=== PATIENT | male | born 1980 | race Caucasian/White ===

== ENCOUNTER 2018-06-25 18:27 | Emergency (ER) | payer MEDICAID, OTHER ==
[2018-06-25 18:40] VITALS: BP 139/108
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
[2018-06-25] MEDS ORDERED: Metoclopramide 10 MG/2 ML SDV IVPUSH ONE (19:14)
[2018-06-25] MEDS ORDERED: HYDROmorphone 1 MG/ML Syringe IVPUSH ONE (19:14)
[2018-06-25] MEDS ORDERED: Sodium Chloride 0.9% 1,000 ML IV SCH (19:15)
[2018-06-25] MEDS ORDERED: Ketorolac 30 MG/ML SDV IVPUSH SCH (19:15)
--- NOTE | 2018-06-26 09:20 | CT ---
CT lumbar spine Technique: Multiple axial sections were obtained from the mid disc level of T11-T12 inferiorly to the bottom of the S3 sacral segment. Reconstructed sagittal and coronal images were reviewed. Comparison: No prior lumbar spine imaging. Findings: Nonobstructing calculus is partially seen within the left kidney. Liver shows fatty infiltration. T11-T12: Disc is incompletely seen. Posterior disc maintains a concave margin. No central canal stenosis or neural foraminal stenosis is seen. T12-L1: Posterior disc maintains a concave margin. No central canal stenosis or neural foraminal stenosis is seen. L1-L2: Posterior disc is preserved. No central canal stenosis or neural foraminal stenosis is seen. L2-L3: Posterior disc maintains a concave margin. No central canal stenosis or neural foraminal stenosis is seen. L3-L4: Posterior disc maintains a concave margin. No central canal stenosis or neural foraminal stenosis is seen. L4-L5: Minimal circumferential disc bulge is seen. Posterior disc maintains a planar margin. No central canal stenosis or neural foraminal stenosis is seen. L5-S1: Mild posterior disc bulge is seen asymmetric to the right side. Disc bulge slightly touches the right S1 nerve root. Neural foramina are patent where the nerve roots exit. Minimal degenerative apophyseal change is seen. No fracture or abnormal subluxation is seen. Impression: 1. Slight degenerative change as noted above most prominent at L5-S1 with minimal disc bulge slightly touching the right S1 nerve root. 2. Nothing acute is seen. 3. Other incidental findings as noted above. Diagnostic code #3 I agree with preliminary report issued by [facility] ([facility] report finalized on 06/25/18, 10:17 PM Central Time)
== END 2018-06-25 21:50 | disposition home or self-care (01) ==
LOC: JD.ED 18:27
DX: M47.26 Other spondylosis with radiculopathy, lumbar region (principal); M51.37 Other intervertebral disc degeneration, lumbosacral region; I10 Essential (primary) hypertension; F41.9 Anxiety disorder, unspecified; F32.9 Major depressive disorder, single episode, unspecified; F17.210 Nicotine dependence, cigarettes, uncomplicated; Z88.1 Allergy status to other antibiotic agents
CPT/HCPCS: 72131; 96361; 96374; 96375; 99284; J1170; J1885; J2765; J7040

== ENCOUNTER 2020-01-12 14:46 | Inpatient (IN) | payer MEDICAID ==
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
[2020-01-12] MEDS ORDERED: Lactated Ringers 1,000 ML IV ONE ×2 (15:25→15:27)
[2020-01-12] MEDS ORDERED: Cyanocobalamin (Vitamin B12) 1,000 MCG/ML SDV IM ONE (15:25)
[2020-01-12] MEDS ORDERED: Ondansetron 4 MG/2 ML SDV IVPUSH ONE (15:25)
[2020-01-12] MEDS: Folic Acid 50 MG/10 ML MDV IV SCH (16:45)
[2020-01-12] MEDS ORDERED: Acetaminophen 325 MG Tab PO ONE (16:51)
[2020-01-12] MEDS ORDERED: NS + KCl 20mEq/L 1,000 ML IV SCH (17:15)
[2020-01-12] MEDS: Sodium Chloride 0.9% 1,000 ML IV SCH (17:49)
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
[2020-01-12] MEDS ORDERED: Ondansetron 4 MG/2 ML SDV IV PRN (18:27)
[2020-01-12] MEDS ORDERED: Ondansetron 4 MG Tab.DIS PO PRN (18:27)
[2020-01-12] MEDS ORDERED: LORazepam 1 MG Tab PO SCH (18:30)
[2020-01-12] MEDS ORDERED: LORazepam 2 MG/ML SDV IV SCH (18:30)
[2020-01-12] MEDS ORDERED: Magnesium Sulfate/Water 4 GM in Premix Bag 1 BAG IV ONE (18:53)
[2020-01-12] MEDS ORDERED: Lactated Ringers 1,000 ML IV SCH (19:00)
[2020-01-12] MEDS: Potassium Chloride 10 MEQ in Premix Bag 1 BAG IV SCH ×2 (20:32→22:04)
[2020-01-12] MEDS: Nicotine 14 MG/24 Hr Patch TRDERM SCH (20:43)
[2020-01-13] MEDS: Sodium Chloride 0.9% 1,000 ML IV SCH ×3 (00:31→15:01)
[2020-01-13] MEDS: Folic Acid 50 MG/10 ML MDV IV SCH (09:54)
[2020-01-13] MEDS: Nicotine 14 MG/24 Hr Patch TRDERM SCH (09:54)
--- NOTE | 2020-01-13 10:28 | US ---
Abdominal ultrasound: Multiple real-time images of the abdomen were obtained. Liver is generous in size and appears echogenic most likely due to fatty infiltration. No definite focal abnormality is appreciated within the liver. Gallbladder is filled with sludge. No shadowing gallstones, gallbladder wall thickening or biliary duct dilatation is seen. Pancreas appears to be a scattered in echogenicity. Possible hypoechoic mass within the body of the pancreas is noted measuring 2.2 cm. No additional abnormalities are appreciated within the visualized pancreas. Kidneys show no hydronephrosis or mass. Right kidney length is 11.4 cm and left kidney length is 12.3 cm. Aorta shows no aneurysm. Inferior vena cava not visualized due to bowel gas. Spleen size is normal. Portal vein shows normal hepatopedal flow. Impression: 1. Abnormal pancreas suggesting the possibility of chronic pancreatitis. Questionable mass within the mid pancreas measuring 2.2 cm. [address] of the pancreas is recommended to further evaluate. 2. Sludge within the gallbladder. 3. Fatty infiltration within the liver with mild hepatomegaly. Diagnostic code #9 This report was dictated in MDT I agree with preliminary report from [facility], finalized on 01/12/20, 8:02 PM Central Daylight Time
--- NOTE | 2020-01-13 11:18 | PCM.PN ---
- General Info Date of Service: 01/13/20 Subjective Update: Feeling ok Slept ok Thirsty No pain - Patient Data Vitals - Most Recent: Last Vital Signs Temp 98.2 F 01/13/20 07:38 Pulse 109 H 01/13/20 07:38 Resp 14 01/13/20 07:38 BP 114/84 01/13/20 07:38 Pulse Ox 98 01/13/20 07:38 Weight - Most Recent: 70.942 kg - Exam Quality Assessment: No: Supplemental Oxygen, Central Line/PICC, Urine Catheter General: Alert, Oriented, Cooperative. No: No Acute Distress HEENT: Pupils Equal, Pupils Reactive, Scleral Icterus Neck: Supple, Trachea Midline, No JVD, No Thyromegaly, +2 Carotid Pulse wo Bruit Lungs: Clear to Auscultation, Normal Respiratory Effort. No: Decreased Breath Sounds, Crackles, Rales, Rhonchi, Rub, Wheezing Cardiovascular: Regular Rate, Regular Rhythm. No: Murmurs, Gallops, Rubs GI/Abdominal Exam: Normal Bowel Sounds, Mass, Hepatomegaly (appear to extend under umbilicus, about 5cm below rib cage). No: Distended, Guarding, Rigid Skin: Warm, Dry, Intact Sepsis Event Note - Evaluation Sepsis Screening Result: Severe Sepsis Risk - Focused Exam Vital Signs: Vital Signs Temp Pulse Resp BP Pulse Ox 01/13/20 07:38 98.2 F 109 H 14 114/84 98 01/13/20 04:44 98.2 F 104 H 20 120/88 98 Date Exam was Performed: 01/13/20 Time Exam was Performed: 17:54 - Problem List & Annotations (1) Alcoholic hepatitis SNOMED Code(s): 282217454 Code(s): K70.10 - ALCOHOLIC HEPATITIS WITHOUT ASCITES Status: Acute Current Visit: Yes (2) Hepatomegaly SNOMED Code(s): 39630579 Code(s): R16.0 - HEPATOMEGALY, NOT ELSEWHERE CLASSIFIED Status: Acute Current Visit: Yes (3) Macrocytic anemia SNOMED Code(s): 33989386 Code(s): D53.9 - NUTRITIONAL ANEMIA, UNSPECIFIED Status: Acute Current Visit: Yes (4) Thrombocytopenia SNOMED Code(s): 037619102 Code(s): D69.6 - THROMBOCYTOPENIA, UNSPECIFIED Status: Acute Current Visit: Yes (5) Hypokalemia SNOMED Code(s): 65804301 Code(s): E87.6 - HYPOKALEMIA Status: Acute Current Visit: Yes (6) Hypoalbuminemia SNOMED Code(s): 471441533 Code(s): E88.09 - [facility] DISORDERS OF PLASMA-PROTEIN METABOLISM, NEC Status: Acute Current Visit: Yes (7) Alcohol abuse SNOMED Code(s): 62794834 Code(s): F10.10 - ALCOHOL ABUSE, UNCOMPLICATED Status: Acute Current Visit: Yes (8) Hyponatremia SNOMED Code(s): 11603133 Code(s): E87.1 - HYPO-OSMOLALITY AND HYPONATREMIA Status: Acute Current Visit: Yes (9) Anxiety SNOMED Code(s): 30309914 Code(s): F41.9 - ANXIETY DISORDER, UNSPECIFIED Status: Acute Current Visit: No (10) Depression SNOMED Code(s): 24195255 Code(s): F32.9 - MAJOR DEPRESSIVE DISORDER, SINGLE EPISODE, UNSPECIFIED Status: Acute Current Visit: No (11) Hypomagnesemia SNOMED Code(s): 684252379 Code(s): E83.42 - HYPOMAGNESEMIA Status: Acute Current Visit: Yes (12) Current every day smoker SNOMED Code(s): 844566208, 177238209 Code(s): F17.200 - NICOTINE DEPENDENCE, UNSPECIFIED, UNCOMPLICATED Status: Acute Current Visit: Yes (13) Pancreatic mass SNOMED Code(s): 239440472 Code(s): K86.89 - OTHER SPECIFIED DISEASES OF PANCREAS Status: Acute Current Visit: Yes (14) Hypophosphatemia SNOMED Code(s): 7972394 Code(s): E83.39 - OTHER DISORDERS OF PHOSPHORUS METABOLISM Status: Acute Current Visit: Yes (15) Marijuana smoker SNOMED Code(s): 991964791 Code(s): F12.90 - CANNABIS USE, UNSPECIFIED, UNCOMPLICATED Status: Acute Current Visit: Yes - Problem List Review Problem List Initiated/Reviewed/Updated: Yes - Plan Plan:: DAY OF ADMISSION - Ethanol level zero on admission + binge alcohol drinking pattern - Admitted with [facility] protocol - No need for steroid use due to Maddrey score of 8 - Negative Tylenol and salicylate level - Positive UDS for THC - Normal coagulation studies, no need for vitamin K - Normal kidney function - Smoked 0.5ppd - Depression - Worsening depression as per patient - Previously treated with paroxetine, he discontinued due to sexual dysfunction - Denies any suicidal or homicidal ideation - Denies any previous psychiatric admissions DAY 1 - Evaluated by psychiatry - Recommended initiating Seroquel, Topamax, Prozac and Ativan as needed - Outpatient rehabilitation - Complete abdominal US with mas in pancreatic head recommending triple phase CT - Electrolytes continue to be abnormal, will replace - Liver function tests still significantly elevate but trending down - Patient remains NPO - Afebrile - 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 Case discussed with [facility] Pancreatologist in [place], [place]--> States that the findings on pancreatic head appear to be same density of the rest of the pancreas and does not appear to be a mas There is some stranding around the pancreas which represents acute edema and stated patient likely is having acute pancreatitis without pain Recommended outpatient endoscopic ultrasound 4 weeks after resolution of current clinical picture Acute alcoholic hepatitis Alcohol abuse, binge pattern Hepatomegaly - NS + 40KCl - Repeat labs in AM - Strict urine output monitoring - Thiamine and folic acid supplementation - Banana bag in AM - CIWA protocol - Hepatitis panel, pending - Continue NPO status - Daily lipase and amylase Hypokalemia Hypophosphatemia Hyponatremia - KCl 40mEq IV - NS + 40mEq at 150 ml/hr - Sodium phosphate 60mMol Current every day smoker - Nicotine patch 14mg Depression - Start thiamine, folic acid - Start Seroquel - Start Topamax - Start Prozac Hypoalbuminemia Weight loss - Dietary consult Hypomagnesemia, resolved PROPHYLAXIS DVT- compression stockings GI- pantoprazole CODE STATUS: FULL CODE DISPOSITION: Patient will be admitted for supportive care and monitorization of liver function. 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
[2020-01-13] MEDS ORDERED: Sodium Chloride 0.9% 10 ML Syringe FLUSH ONE (11:44)
[2020-01-13] MEDS ORDERED: Iopamidol 755 Mg/ML 100 ML Bottle IVPUSH ONE (11:44)
[2020-01-13] MEDS ORDERED: Sodium Chloride 0.9% 100 ML IV SCH (11:45)
[2020-01-13] MEDS ORDERED: LORazepam 1 MG Tab PO ONE (14:29)
[2020-01-13] MEDS: FLUoxetine 20 MG Cap PO SCH (15:00)
[2020-01-13] MEDS: Topiramate 25 MG Tab PO SCH ×2 (15:00→20:10)
[2020-01-13] MEDS ORDERED: Folic Acid 50 MG/10 ML MDV IV ONE (15:25)
[2020-01-13] MEDS ORDERED: Sodium Phosphate 60 MMOLE in Sodium Chloride 0.9% 250 ML IV ONE ×2 (18:38→19:15)
[2020-01-13] MEDS: Sodium Chloride 0.9% with KCl 1,000 ML IV SCH (20:09)
[2020-01-13] MEDS: QUEtiapine 25 MG Tab PO SCH (20:10)
[2020-01-13] MEDS: Potassium Chloride 10 MEQ in Premix Bag 1 BAG IV SCH ×4 (20:10→23:39)
[2020-01-14] MEDS: Sodium Chloride 0.9% with KCl 1,000 ML IV SCH ×4 (03:32→23:14)
--- NOTE | 2020-01-14 07:14 | CT ---
CT abdomen and pelvis Technique: Multiple axial sections were obtained as a 3 phase study through the pancreas. Noncontrast imaging was obtained as well as arterial phase imaging and venous phase imaging through the pancreas. 5 minute delayed images were also obtained through the pancreas. Findings: Liver is enlarged and shows diffuse fatty infiltration. Visualized lung bases show nothing acute. Adrenal glands show no nodule. Kidneys show symmetric contrast enhancement without hydronephrosis. No mass is appreciated within the kidneys. 5 minute delayed images show contrast excretion into both ureters which show no dilatation. There is mild bowel wall thickening within portions of the colon. Slight inflammatory change is noted around the hepatic flexure of the colon. Findings are suspicious for nonspecific colitis. Pancreas shows no abnormal calcifications. Size of the pancreas is within normal limits for age. Focal area of poor enhancement on the arterial phase noted within the head and uncinate process of the pancreas. This finding measures 2.1 cm. This finding is near the ampulla of Vater. No additional abnormality is seen within the pancreas. Scattered small lymph nodes are seen within the retroperitoneum believed to be within normal limits. Bone window settings were reviewed. No acute osseous finding is appreciated. Impression: 1. Findings suspicious for nonspecific colitis as described above. 2. Focal area of poor enhancement within the head and uncinate process of the pancreas. This could represent focal area of pancreatitis as well as a small mass which occurs near the ampulla of Vater. Mass is felt more likely. Recommend referral to a legal arbitrator for opinion whether biopsy by ERCP can be performed. This finding would be difficult to biopsy by percutaneous technique. Also, please correlate if patient has elevated amylase and lipase to indicate pancreatitis. 3. Diffuse fatty infiltration within the liver with hepatomegaly. Diagnostic code #9 This report was dictated in MDT MTDD
[2020-01-14] MEDS: Nicotine 14 MG/24 Hr Patch TRDERM SCH (08:16)
[2020-01-14] MEDS: FLUoxetine 20 MG Cap PO SCH (08:16)
[2020-01-14] MEDS: Thiamine 100 MG Tab PO SCH (08:16)
[2020-01-14] MEDS: Topiramate 25 MG Tab PO SCH ×2 (08:16→21:29)
--- NOTE | 2020-01-14 08:51 | CONS ---
CONSULTING PHYSICIAN: Seymour Villanueva MD DATE OF CONSULTATION: 01/13/2020 Site where the services are provided are [facility] in [place], [place]. Site where the services are provided are offices in [facility]. Length of service for this 60-minute inpatient telemedicine event is 60 minutes. IDENTIFICATION: The patient is a 39-year-old male who is admitted to the inpatient Med/Surg Unit at [facility] in [place], [place]. He is seen for psychiatric consultation per the request of staff attending, Dr. Urbina, in our treatment team. CHIEF COMPLAINT: "I wanna diaz and drink like a fish. I don't know why the hell I do drink sometimes." HISTORY OF PRESENT ILLNESS: The patient is a 39-year-old male who is admitted to the inpatient med/surg unit for complications of hepatitis caused by excessive alcohol use. He states that he has a history of binge drinking, and he states that for the last 6 weeks, he has been drinking "about 10 to 12 shots a day" of hard liquor. He states he has been doing that again for 6 weeks and he states that he had been doing well, "but it all started when I stopped taking my paroxetine" back in May. The patient states that he had been on the Paxil medication for about 6 months. "I had not been drinking", but he stopped the medication because he was having some sexual side effects from the medication. He states also "I'm kind of quick tempered" and reports mood swings. He states the Paxil helped a little bit with that too, but since he stopped the Paxil medication, started to get pretty depressed, pretty irritable, and he has been drinking again pretty heavily. He states he has lack of interest, lack of sleep, where he only gets about 3 hours of sleep per 24-hour period and "if I'm nj, maybe 4 hours." Reports lack of appetite. He states that he has racing thoughts, ruminations, worries, "constantly worrying," and just feels pretty anxious too. He is denying any suicide or homicide. He denies any psychotic, delusional, or paranoid symptoms. He denies any illicit substance use complicating his clinical picture. He states that he wants to stop drinking and he states "I just need to get on a medication again" to help him with his mood. He does report decent energy levels in general. MEDICATIONS: At time of presentation, none. ALLERGIES: Cephalexin. PAST MEDICAL HISTORY: 1. Lower back pain. 2. History of alcoholic hepatitis. REVIEW OF SYSTEMS: Aside from musculoskeletal and hepatic, all other major organ systems are negative at this point in time for acute difficulties or complications. FAMILY PSYCHIATRIC HISTORY: The patient reports sister who has a history of alcoholism. PAST PSYCHIATRIC AND CD HISTORY: The patient denies any previous psychiatric hospitalizations. Reports one chemical dependency treatment in the past. He has not been to AA. He states his longest sobriety has been for 1 year. He denies any previous suicide attempts, self-injurious behaviors, or eating disorder history. PAST PSYCHIATRIC DIAGNOSIS: Includes clinical depression. PAST PSYCHIATRIC MEDICATION HISTORY: Includes Paxil. He was taking 20 mg for 6 months at work, but he quit secondary to sexual side effects, and he also had Ativan in the past which helped him. The patient sees a neurologist out [facility] named Dr. Patrick. SOCIAL HISTORY: The patient was born in [place], [place]. Raised in [place], [place]. He is the 4th of 4 siblings and 3 older sisters. The patient's parents were throughout his childhood and adolescence. Father was a duarte and a rancher. Mother worked on a ranch and stayed home with the family. 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 He has been once, once, is in a current relationship for about 5 years. He has a 2-year-old child from the relationship and 4 stepchildren. His girlfriend works in a truck shop. He lives in [place], [place], with his girlfriend and children. Denies any prior service or any current legal difficulties. He is Hoahaoism in terms of his miguelina formation. However, he is not feeling so depressed. He enjoys playing golf, hunting, fishing, and camping. MENTAL STATUS EXAM: The patient is a 39-year-old white male in no apparent distress. Speech is of regular rate and rhythm. The patient is cognitively oriented. Psychomotor activity is within normal limits. There are no abnormal motor movements or tics observed. Gait and station are not observed. This patient is lying in bed during the course of the inpatient consult. Mood is depressed and anxious. Affect is consistent with stated mood, restricted, but cooperative overall for the purposes of the inpatient consult. There is no behavioral or stated evidence of acute suicidal or homicidal ideation or acute psychotic, delusional, or paranoid symptoms. Thought processes are significant for racing thoughts or ruminations. There are no manic symptoms, loose associations evident. Judgment and insight appear unimpaired at this point in time. Motivation for help appears good. VITAL SIGNS: 114/84, 109, 14, 98.2 degrees. IMPRESSION: [place] I: 1. Alcohol dependence, F10.20. 2. Bipolar affective disease, mixed type, F31.60. 3. Anxiety disorder, not otherwise specified, F41.9. 4. Rule out major depressive disorder. [place] II: None. [place] III: 1. History of alcoholic hepatitis. 2. History of lower back pain. [place] IV: Severe. Mill[place] V: 55. PLAN: 1. Sobriety. 2. AA rep to visit the patient while on unit. 3. Pastoral guidance. 4. Begin trial of Seroquel 25 mg at bedtime to help with clarity of thought, mood stability, and reduction of racing thoughts, ruminations, as well as sleep initiation and maintenance, anxiety reduction, and elimination of any psychotic symptoms. 5. Begin Topamax 25 mg b.i.d. for mood stability, anxiety reduction, and seizure prophylaxis. 6. Begin Prozac 20 mg q.a.m. for symptoms of depression. 7. Folic acid supplementation while on unit. 8. Thiamine supplementation while on unit. 9. Ativan per [facility] protocol. 10.Recommend that the patient follow up with Outpatient Psychiatry when medically stabilized and discharged back to community to assess his overall function and efficacy of his newly initiated psychiatric medication regimen. 11.The patient is apprised of benefits and side effects of his newly initiated psychiatric medication regimen. He acknowledges understanding of these facts. He has no further questions by the end of the interview session. 12.The patient is unable to maintain sobriety on his own after being discharged back to the community. Would recommend some type of structured chemical dependency treatment program, either on outpatient or inpatient basis moving forward. 13.We will continue to follow up with the patient on an as-needed basis while he remains on the inpatient med/surg unit at [facility] in [place], [place]. 14.We will follow up with the patient sooner if any complications in the interim. 15.Crisis plan is in place. SIERRA /[id number]
[2020-01-14] MEDS: Folic Acid 50 MG/10 ML MDV IV SCH (09:44)
--- NOTE | 2020-01-14 19:36 | PCM.PN ---
- General Info Date of Service: 01/14/20 Subjective Update: Feeling OK Slept OK No pain No complaints - Patient Data Vitals - Most Recent: Last Vital Signs Temp 98.1 F 01/14/20 11:35 Pulse 105 H 01/14/20 16:09 Resp 16 01/14/20 16:09 BP 126/92 H 01/14/20 16:09 Pulse Ox 97 01/14/20 16:09 Weight - Most Recent: 72.756 kg - Exam Physical Findings Comments:: Quality Assessment: No: Supplemental Oxygen, Central Line/PICC, Urine Catheter General: Alert, Oriented, Cooperative. No: No Acute Distress HEENT: Pupils Equal, Pupils Reactive, Scleral Icterus Neck: Supple, Trachea Midline, No JVD, No Thyromegaly, +2 Carotid Pulse wo Bruit Lungs: Clear to Auscultation, Normal Respiratory Effort. No: Decreased Breath Sounds, Crackles, Rales, Rhonchi, Rub, Wheezing Cardiovascular: Regular Rate, Regular Rhythm. No: Murmurs, Gallops, Rubs GI/Abdominal Exam: Normal Bowel Sounds, Mass, Hepatomegaly (appear to extend under umbilicus, about 5cm below rib cage). No: Distended, Guarding, Rigid Skin: Warm, Dry, Intact Sepsis Event Note - Evaluation Sepsis Screening Result: No Definite Risk - Focused Exam Vital Signs: Vital Signs Temp Pulse Resp BP Pulse Ox 01/14/20 16:09 105 H 16 126/92 H 97 01/14/20 11:35 98.1 F 103 H 16 129/91 H 98 01/14/20 08:22 97.3 F 97 16 133/91 H 98 Date Exam was Performed: 01/15/20 Time Exam was Performed: 11:57 - Problem List & Annotations (1) Alcoholic hepatitis SNOMED Code(s): 666373528 Code(s): K70.10 - ALCOHOLIC HEPATITIS WITHOUT ASCITES Status: Acute Current Visit: Yes (2) Hepatomegaly SNOMED Code(s): 86891074 Code(s): R16.0 - HEPATOMEGALY, NOT ELSEWHERE CLASSIFIED Status: Acute Current Visit: Yes (3) Macrocytic anemia SNOMED Code(s): 96170582 Code(s): D53.9 - NUTRITIONAL ANEMIA, UNSPECIFIED Status: Acute Current Visit: Yes (4) Thrombocytopenia SNOMED Code(s): 472208817 Code(s): D69.6 - THROMBOCYTOPENIA, UNSPECIFIED Status: Acute Current Visit: Yes (5) Hypokalemia SNOMED Code(s): 83360338 Code(s): E87.6 - HYPOKALEMIA Status: Acute Current Visit: Yes (6) Hypoalbuminemia SNOMED Code(s): 988432403 Code(s): E88.09 - OTH DISORDERS OF PLASMA-PROTEIN METABOLISM, NEC Status: Acute Current Visit: Yes (7) Alcohol abuse SNOMED Code(s): 21367934 Code(s): F10.10 - ALCOHOL ABUSE, UNCOMPLICATED Status: Acute Current Visit: Yes (8) Hyponatremia SNOMED Code(s): 63996110 Code(s): E87.1 - HYPO-OSMOLALITY AND HYPONATREMIA Status: Acute Current Visit: Yes (9) Anxiety SNOMED Code(s): 20727693 Code(s): F41.9 - ANXIETY DISORDER, UNSPECIFIED Status: Acute Current Visit: No (10) Depression SNOMED Code(s): 46801482 Code(s): F32.9 - MAJOR DEPRESSIVE DISORDER, SINGLE EPISODE, UNSPECIFIED Status: Acute Current Visit: No (11) Hypomagnesemia SNOMED Code(s): 274923863 Code(s): E83.42 - HYPOMAGNESEMIA Status: Acute Current Visit: Yes (12) Current every day smoker SNOMED Code(s): 520772075, 280425813 Code(s): F17.200 - NICOTINE DEPENDENCE, UNSPECIFIED, UNCOMPLICATED Status: Acute Current Visit: Yes (13) Pancreatic mass SNOMED Code(s): 407828217 Code(s): K86.89 - OTHER SPECIFIED DISEASES OF PANCREAS Status: Acute Current Visit: Yes (14) Hypophosphatemia SNOMED Code(s): 8968860 Code(s): E83.39 - OTHER DISORDERS OF PHOSPHORUS METABOLISM Status: Acute Current Visit: Yes (15) Marijuana smoker SNOMED Code(s): 852930722 Code(s): F12.90 - CANNABIS USE, UNSPECIFIED, UNCOMPLICATED Status: Acute Current Visit: Yes - Problem List Review Problem List Initiated/Reviewed/Updated: Yes - Plan Plan:: DAY OF ADMISSION - Ethanol level zero on admission + binge alcohol drinking pattern - Admitted with CIWA protocol - No need for steroid use due to Maddrey score of 8 - Negative Tylenol and salicylate level - Positive UDS for THC - Normal coagulation studies, no need for vitamin K - Normal kidney function - Smoked 0.5ppd - Depression - Worsening depression as per patient - Previously treated with paroxetine, he discontinued due to sexual dysfunction - Denies any suicidal or homicidal ideation - Denies any previous psychiatric admissions DAY 1 - Evaluated by psychiatry - Recommended initiating Seroquel, Topamax, Prozac and Ativan as needed - Outpatient rehabilitation - Complete abdominal US with mas in pancreatic head recommending triple phase CT - Electrolytes continue to be abnormal, will replace - Liver function tests still significantly elevate but trending down - Patient remains NPO - Afebrile - 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 Case discussed with Dameon Pancreatologist in [place], [place]--> States that the findings on pancreatic head appear to be same density of the rest of the pancreas and does not appear to be a mas There is some stranding around the pancreas which represents acute edema and stated patient likely is having acute pancreatitis without pain Recommended outpatient endoscopic ultrasound 4 weeks after resolution of current clinical picture DAY 2 - LFTs trending down - Pancreatic enzymes trending down - No pain - Is hungry - Afebrile - CIWA negative Acute alcoholic hepatitis Alcohol abuse, binge pattern Hepatomegaly - NS + 40KCl - Repeat labs in AM - Strict urine output monitoring - Thiamine and folic acid supplementation - [facility] protocol - Hepatitis panel, pending - Continue NPO status - Daily lipase and amylase Hypokalemia Hypophosphatemia Hyponatremia - KCl 40mEq IV - NS + 40mEq at 150 ml/hr - Sodium phosphate 60mMol Current every day smoker - Nicotine patch 14mg Depression - Continue Seroquel, Topamax and Prozac Hypoalbuminemia Weight loss - Dietary consult Hypomagnesemia, resolved PROPHYLAXIS DVT- compression stockings GI- pantoprazole CODE STATUS: FULL CODE DISPOSITION: Patient will remain admitted for supportive care and monitorization of liver function. 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
[2020-01-14] MEDS: QUEtiapine 25 MG Tab PO SCH (21:29)
[2020-01-14] MEDS: LORazepam 1 MG Tab PO SCH (23:37)
[2020-01-15] MEDS: LORazepam 1 MG Tab PO SCH (01:07)
[2020-01-15] MEDS: Sodium Chloride 0.9% with KCl 1,000 ML IV SCH (01:08)
[2020-01-15] MEDS: LORazepam 2 MG/ML SDV IV SCH ×3 (01:55→03:15)
[2020-01-15] MEDS ORDERED: Haloperidol Lactate 5 MG/ML SDV IM ONE (02:15)
[2020-01-15] MEDS ORDERED: Haloperidol Lactate 5 MG/ML SDV ONE (02:18)
--- NOTE | 2020-01-15 02:31 | PCM.SN ---
- Free Text/Narrative Note: The patient is a 39-year-old gentleman who was admitted initially for acute alcohol hepatitis. Physician was called to the patient's room secondary to his severe agitation, disorientation and hallucinations. According to nursing staff the patient's hallucinations and agitation gotten worse over the past several hours. He was initially placed back on CIWA protocol he had been given 3 milligrams of Ativan. The patient will also be continued on CIWA protocol. On examination the patient was disoriented to place and time and he was able to repeat his name. Also, the patient was clearly hallucinating. The patient was also continuing to try and get out of bed. It was felt that the patient is at higher risk for seizure activity and unintentional self-harm requiring one-on- one sitter and he was moved to intensive care unit. The patient also had ordered to have 5 mg of Haldol IM to help with his agitation. This felt that the patient's acute mental status changes physician relations representative of alcoholic encephalopathy. He also be continued on IV fluids as well as thiamine and folate. TeleHealth - TeleHealth Patient Service Facility: [facility]: [facility] Informed Consent: Telemedicine Audio/Visual Informed Consent: The risks, benefits, and alternatives to the telehealth visit were explained to the patient and the patient consented to this modality of care. The telehealth visit was carried out via a secure, web-based conferencing system. This telemedicine service was a real-time, two-way interactive video and communication between the patient and the provider. All the parties involved were identified and approved by the patient prior to the visit. Any physical exam was assisted by the patient. Unless noted otherwise, the provider was located at their usual clinic location , and the patient was at their place of residence. Patient identity was confirmed by having the patient state their name and date of . All communications with the patient (verbal, audiovisual, and written) were documented in the patients medical record per documentation standards.
[2020-01-15] MEDS ORDERED: Magnesium Sulfate/Water 2 GM in Premix Bag 1 BAG IV ONE (08:30)
[2020-01-15] MEDS ORDERED: Sodium Chloride 0.9% 1,000 ML IV SCH (08:30)
[2020-01-15] MEDS: Folic Acid 1 MG Tab PO SCH (08:45)
[2020-01-15] MEDS: Thiamine 100 MG Tab PO SCH (08:45)
[2020-01-15] MEDS: Nicotine 14 MG/24 Hr Patch TRDERM SCH (08:45)
[2020-01-15] MEDS: FLUoxetine 20 MG Cap PO SCH (08:45)
--- NOTE | 2020-01-15 10:12 | PCM.PN ---
- General Info Date of Service: 01/15/20 Subjective Update: 39-year-old male admitted for alcoholic hepatitis became severely agitated, disoriented, and had hallucinations early this morning/late last night. Patient was given Ativan and Haldol. Patient was transferred to the ICU for closer observation and one-on-one sitter. Functional Status: Reports: Pain Controlled - Review of Systems General: Reports: Other (Patient is confused) - Patient Data Vitals - Most Recent: Last Vital Signs Temp 97.0 F 01/15/20 08:00 Pulse 98 01/15/20 08:00 Resp 20 01/15/20 08:00 BP 100/70 01/15/20 08:00 Pulse Ox 98 01/15/20 08:00 Weight - Most Recent: 165 lb 3.2 oz I&O - Last 24 Hours: Intake & Output 01/14/20 01/15/20 01/15/20 22:59 06:59 14:59 Intake Total 2595 363 Output Total 1600 450 Balance 995 -87 Lab Results Last 24 Hours: Laboratory Results - last 24 hr 01/12/20 01/15/20 01/15/20 Range/Units 18:06 05:00 05:01 WBC 5.61 (4.23-9.07) K/mm3 RBC 2.36 L (4.63-6.08) M/mm3 Hgb 8.9 L (13.7-17.5) gm/dl Hct 27.5 L (40.1-51.0) % MCV 116.5 H D (79.0-92.2) fl MCH 37.7 H (25.7-32.2) pg MCHC 32.4 (32.2-35.5) g/dl RDW Std Deviation 61.5 H (35.1-43.9) fL Plt Count 76 L (163-337) K/mm3 MPV 12.1 (9.4-12.3) fl Neut % (Auto) 65.7 (34.0-67.9) % Lymph % (Auto) 17.8 L (21.8-53.1) % Stearns % (Auto) 13.4 H (5.3-12.2) % Eos % (Auto) 1.4 (0.8-7.0) Baso % (Auto) 0.5 (0.1-1.2) % Neut # (Auto) 3.68 (1.78-5.38) K/mm3 Lymph # (Auto) 1.00 L (1.32-3.57) K/mm3 Stearns # (Auto) 0.75 (0.30-0.82) K/mm3 Eos # (Auto) 0.08 (0.04-0.54) K/mm3 Baso # (Auto) 0.03 (0.01-0.08) K/mm3 Manual Slide Review Abnormal smear Sodium 135 L (136-145) mEq/L Potassium 4.8 (3.5-5.1) mEq/L Chloride 101 (98-107) mEq/L Carbon Dioxide 20 L (21-32) mEq/L Anion Gap 18.8 H (5-15) BUN 4 L (7-18) mg/dL Creatinine 0.3 L (0.7-1.3) mg/dL Est Cr Clr Drug Dosing 353.85 mL/min Estimated GFR (MDRD) > 60 (>60) mL/min BUN/Creatinine Ratio 13.3 L (14-18) Glucose 73 L (74-106) mg/dL Calcium 8.2 L (8.5-10.1) mg/dL Phosphorus 0.9 L (2.6-4.7) mg/dL Magnesium 1.7 L (1.8-2.4) mg/dl Total Bilirubin 14.0 H (0.2-1.0) mg/dL Direct Bilirubin 11.30 H (0.0-0.2) mg/dl GGT 1655 H (15-85) U/L AST 366 H (15-37) U/L ALT 147 H (16-63) U/L Alkaline Phosphatase 360 H (46-116) U/L Ammonia (11-32) umol/L Total Protein 5.5 L (6.4-8.2) g/dl Albumin 2.4 L (3.4-5.0) g/dl Globulin 3.1 gm/dL Albumin/Globulin Ratio 0.8 L (1-2) Amylase 119 H (25-115) U/L Lipase 854 H (73-393) U/L Hepatitis A IgM Ab Negative (Negative) Hep Bs Antigen Negative (Negative) Hep B Core IgM Ab Negative (Negative) Hepatitis C Antibody 0.1 (0.0-0.9) s/co ratio 01/15/20 Range/Units 06:50 WBC (4.23-9.07) K/mm3 RBC (4.63-6.08) M/mm3 Hgb (13.7-17.5) gm/dl Hct (40.1-51.0) % MCV (79.0-92.2) fl MCH (25.7-32.2) pg MCHC (32.2-35.5) g/dl RDW Std Deviation (35.1-43.9) fL Plt Count (163-337) K/mm3 MPV (9.4-12.3) fl Neut % (Auto) (34.0-67.9) % Lymph % (Auto) (21.8-53.1) % Stearns % (Auto) (5.3-12.2) % Eos % (Auto) (0.8-7.0) Baso % (Auto) (0.1-1.2) % Neut # (Auto) (1.78-5.38) K/mm3 Lymph # (Auto) (1.32-3.57) K/mm3 Stearns # (Auto) (0.30-0.82) K/mm3 Eos # (Auto) (0.04-0.54) K/mm3 Baso # (Auto) (0.01-0.08) K/mm3 Manual Slide Review Sodium (136-145) mEq/L Potassium (3.5-5.1) mEq/L Chloride (98-107) mEq/L Carbon Dioxide (21-32) mEq/L Anion Gap (5-15) BUN (7-18) mg/dL Creatinine (0.7-1.3) mg/dL Est Cr Clr Drug Dosing mL/min Estimated GFR (MDRD) (>60) mL/min BUN/Creatinine Ratio (14-18) Glucose (74-106) mg/dL Calcium (8.5-10.1) mg/dL Phosphorus (2.6-4.7) mg/dL Magnesium (1.8-2.4) mg/dl Total Bilirubin (0.2-1.0) mg/dL Direct Bilirubin (0.0-0.2) mg/dl GGT (15-85) U/L AST (15-37) U/L ALT (16-63) U/L Alkaline Phosphatase (46-116) U/L Ammonia 28 (11-32) umol/L Total Protein (6.4-8.2) g/dl Albumin (3.4-5.0) g/dl Globulin gm/dL Albumin/Globulin Ratio (1-2) Amylase (25-115) U/L Lipase (73-393) U/L Hepatitis A IgM Ab (Negative) Hep Bs Antigen (Negative) Hep B Core IgM Ab (Negative) Hepatitis C Antibody (0.0-0.9) s/co ratio Med Orders - Current: Current Medications Fluoxetine HCl (Prozac) 20 mg PO DAILY [facility] Last Admin: 01/15/20 08:45 Dose: 20 mg Folic Acid (Folic Acid) 1 mg PO DAILY [facility] Last Admin: 01/15/20 08:45 Dose: 1 mg Magnesium Sulfate 2 gm/ Premix 50 mls @ 25 mls/hr IV ONETIME ONE Stop: 01/15/20 10:29 Last Admin: 01/15/20 09:01 Dose: 25 mls/hr Sodium Chloride (Normal Saline) 1,000 mls @ 150 mls/hr IV ASDIRECTED [facility] Last Admin: 01/15/20 08:30 Dose: 150 mls/hr Lorazepam (Ativan) 1 - 3 mg IV ASDIRECTED DAWN; Protocol Last Admin: 01/15/20 03:15 Dose: 2 mg Lorazepam (Ativan) 1 - 3 mg PO ASDIRECTED DAWN; Protocol Last Admin: 01/15/20 01:07 Dose: 2 mg Nicotine (Habitrol) 14 mg TRDERM DAILY [facility] Last Admin: 01/15/20 08:45 Dose: 14 mg Ondansetron HCl (Zofran Odt) 4 mg PO Q6H PRN PRN Reason: nausea, able to take PO Ondansetron HCl (Zofran) 4 mg IV Q6H PRN PRN Reason: Nausea/Vomiting Thiamine HCl (Vitamin B-1) 100 mg PO DAILY [facility] Last Admin: 01/15/20 08:45 Dose: 100 mg Discontinued Medications Acetaminophen (Tylenol) 650 mg PO NOW ONE Stop: 01/12/20 16:52 Last Admin: 01/12/20 17:54 Dose: Not Given Cyanocobalamin (Vitamin B12) 1,000 mcg IM ONETIME ONE Stop: 01/12/20 15:26 Last Admin: 01/12/20 15:52 Dose: 1,000 mcg Folic Acid (Folic Acid) 1 mg IV ONETIME ONE Stop: 01/13/20 15:26 Folic Acid (Folic Acid) 1 mg IV DAILY [facility] Last Admin: 01/14/20 09:44 Dose: 1 mg Haloperidol Lactate (Haldol) 5 mg IM ONETIME ONE Stop: 01/15/20 02:16 Last Admin: 01/15/20 02:23 Dose: 5 mg Haloperidol Lactate (Haldol) Confirm Administered Dose 5 mg .ROUTE .STK-MED ONE Stop: 01/15/20 02:19 Last Admin: 01/15/20 02:24 Dose: Not Given Lactated Ringer's (Ringers, Lactated) 1,000 mls @ 999 mls/hr IV .BOLUS ONE Stop: 01/12/20 16:25 Last Admin: 01/12/20 15:42 Dose: 999 mls/hr Lactated Ringer's (Ringers, Lactated) 1,000 mls @ 999 mls/hr IV .BOLUS ONE Stop: 01/12/20 16:27 Last Admin: 01/12/20 16:44 Dose: 999 mls/hr Potassium Chloride/Sodium Chloride (Normal Saline With 20 Meq Kcl) 1,000 mls @ 150 mls/hr IV ASDIRECTED [facility] Last Admin: 01/12/20 17:34 Dose: 150 mls/hr Sodium Chloride (Normal Saline) 1,000 mls @ 150 mls/hr IV ASDIRECTED [facility] Last Admin: 01/13/20 15:01 Dose: 150 mls/hr Lactated Ringer's (Ringers, Lactated) 1,000 mls @ 250 mls/hr IV ASDIRECTED [facility] Magnesium Sulfate 4 gm/ Premix 50 mls @ 12.5 mls/hr IV ONETIME ONE Stop: 01/12/20 22:52 Last Admin: 01/12/20 20:32 Dose: 12.5 mls/hr Potassium Chloride 10 meq/ (Premix) 100 mls @ 100 mls/hr IV Q1H DAWN Stop: 01/12/20 20:59 Last Admin: 01/12/20 22:04 Dose: 100 mls/hr Sodium Chloride (Normal Saline) 100 mls @ 60 mls/hr IV ASDIRECTED DAWN Stop: 01/13/20 16:00 Last Admin: 01/13/20 11:49 Dose: 60 mls/hr Potassium Chloride 10 meq/ (Premix) 100 mls @ 100 mls/hr IV Q1H DAWN Stop: 01/13/20 22:44 Last Admin: 01/13/20 23:39 Dose: 100 mls/hr Potassium Chloride/Sodium Chloride (Normal Saline With 40 Meq Kcl) 1,000 mls @ 150 mls/hr IV ASDIRECTED DAWN Last Admin: 01/15/20 01:08 Dose: 150 mls/hr Sodium Phosphate 60 mmole/ (Sodium Chloride) 270 mls @ 67 mls/hr IV ONETIME ONE Stop: 01/13/20 23:16 Last Admin: 01/13/20 20:09 Dose: 67 mls/hr Iopamidol (Isovue-370 (76%)) 100 ml IVPUSH ONETIME ONE Stop: 01/13/20 11:45 Last Admin: 01/13/20 11:49 Dose: 100 ml Lorazepam (Ativan) 0 mg PO ASDIRECTED DAWN; Protocol Lorazepam (Ativan) 0 mg IV ASDIRECTED DAWN; Protocol Lorazepam (Ativan) 1 mg PO ONETIME ONE Stop: 01/13/20 14:30 Last Admin: 01/13/20 15:00 Dose: 1 mg Ondansetron HCl (Zofran) 4 mg IVPUSH ONETIME ONE Stop: 01/12/20 15:26 Last Admin: 01/12/20 15:42 Dose: 4 mg Quetiapine Fumarate (Seroquel) 25 mg PO BEDTIME DAWN Last Admin: 01/14/20 21:29 Dose: 25 mg Sodium Chloride (Saline Flush) 10 ml FLUSH ONETIME ONE Stop: 01/13/20 11:45 Last Admin: 01/13/20 11:49 Dose: 10 ml Topiramate (Topamax) 25 mg PO BID DAWN Last Admin: 01/14/20 21:29 Dose: 25 mg - Exam General: Other (Patient is confused. He knows place and person but not time or date.) HEENT: Other (Left eye is stuck and matted.) Lungs: Clear to Auscultation, Normal Respiratory Effort Cardiovascular: Regular Rate, Regular Rhythm GI/Abdominal Exam: Normal Bowel Sounds, Soft, Non-Tender, No Distention, No Abnormal Bruit, Hepatomegaly Back Exam: Normal Inspection Extremities: Normal Inspection, Non-Tender, No Pedal Edema, Normal Capillary Refill Skin: Warm, Dry, Intact Psy/Mental Status: Withdrawal Symptoms Sepsis Event Note - Evaluation Sepsis Screening Result: No Definite Risk - Focused Exam Vital Signs: Vital Signs Temp Temp Pulse Pulse Resp BP BP 01/15/20 08:00 97.0 F 98 20 100/70 01/15/20 04:00 98.4 F 21 H 128/93 H 01/15/20 03:24 98.4 F 110 H 26 H 130/96 H 01/14/20 23:07 97.7 F 103 H 16 131/95 H Pulse Ox 01/15/20 08:00 98 01/15/20 04:00 96 01/15/20 03:24 96 01/14/20 23:07 95 Date Exam was Performed: 01/15/20 Time Exam was Performed: 12:24 - Problem List & Annotations (1) Alcohol abuse SNOMED Code(s): 04285575 Code(s): F10.10 - ALCOHOL ABUSE, UNCOMPLICATED Status: Acute Current Visit: Yes (2) Alcoholic encephalopathy SNOMED Code(s): 317887031 Code(s): G31.2 - DEGENERATION OF NERVOUS SYSTEM DUE TO ALCOHOL; F10.20 - ALCOHOL DEPENDENCE, UNCOMPLICATED Status: Acute Current Visit: Yes (3) Alcoholic hepatitis SNOMED Code(s): 045260619 Code(s): K70.10 - ALCOHOLIC HEPATITIS WITHOUT ASCITES Status: Acute Current Visit: Yes (4) Current every day smoker SNOMED Code(s): 003674064, 489814646 Code(s): F17.200 - NICOTINE DEPENDENCE, UNSPECIFIED, UNCOMPLICATED Status: Acute Current Visit: Yes (5) Hepatomegaly SNOMED Code(s): 63195028 Code(s): R16.0 - HEPATOMEGALY, NOT ELSEWHERE CLASSIFIED Status: Acute Current Visit: Yes (6) Hypoalbuminemia SNOMED Code(s): 444684208 Code(s): E88.09 - OTH DISORDERS OF PLASMA-PROTEIN METABOLISM, NEC Status: Acute Current Visit: Yes (7) Hypomagnesemia SNOMED Code(s): 284818528 Code(s): E83.42 - HYPOMAGNESEMIA Status: Acute Current Visit: Yes (8) Hyponatremia SNOMED Code(s): 05656447 Code(s): E87.1 - HYPO-OSMOLALITY AND HYPONATREMIA Status: Acute Current Visit: Yes (9) Hypophosphatemia SNOMED Code(s): 4529384 Code(s): E83.39 - OTHER DISORDERS OF PHOSPHORUS METABOLISM Status: Acute Current Visit: Yes - Problem List Review Problem List Initiated/Reviewed/Updated: Yes - My Orders Last 24 Hours: My Active Orders 01/15/20 08:30 Magnesium Sulfate/Water [Magnesium Sulfate in Water Premix] 2 gm Premix Bag 1 bag IV ONETIME Sodium Chloride 0.9% [Normal Saline] 1,000 ml IV ASDIRECTED 01/16/20 05:11 CBC WITH AUTO DIFF [HEME] AM CMP [COMPREHENSIVE METABOLIC PN,CMP] [CHEM] AM MAGNESIUM [CHEM] AM PHOSPHORUS [CHEM] AM 01/17/20 05:11 CBC WITH AUTO DIFF [HEME] AM CMP [COMPREHENSIVE METABOLIC PN,CMP] [CHEM] AM MAGNESIUM [CHEM] AM PHOSPHORUS [CHEM] AM 01/18/20 05:11 CBC WITH AUTO DIFF [HEME] AM CMP [COMPREHENSIVE METABOLIC PN,CMP] [CHEM] AM MAGNESIUM [CHEM] AM PHOSPHORUS [CHEM] AM - Plan Plan:: DAY OF ADMISSION - Ethanol level zero on admission + binge alcohol drinking pattern - Admitted with [facility] protocol - No need for steroid use due to Maddrey score of 8 - Negative Tylenol and salicylate level - Positive UDS for THC - Normal coagulation studies, no need for vitamin K - Normal kidney function - Smoked 0.5ppd - Depression - Worsening depression as per patient - Previously treated with paroxetine, he discontinued due to sexual dysfunction - Denies any suicidal or homicidal ideation - Denies any previous psychiatric admissions DAY 1 - Evaluated by psychiatry - Recommended initiating Seroquel, Topamax, Prozac and Ativan as needed - Outpatient rehabilitation - Complete abdominal US with mas in pancreatic head recommending triple phase CT - Electrolytes continue to be abnormal, will replace - Liver function tests still significantly elevate but trending down - Patient remains NPO - Afebrile - 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 * Transfer to ICU for close monitoring and one-on-one care. * Lipase decreasin down to 854 * Amylase stable at 119 * Bilirubin increased to 14, liver enzymes decreased from admission * PT and INR slightly elevated at 13.1 and 1.22 respectively * Patient n.p.o. but will advance diet as tolerated once his mental status improves * Ammonia level is normal at 28. This makes it less likely to be hepatic encephalopathy. * Phosphorus 0.9 * Alcoholic encephalopathy * Left eye matted and conjunctiva is erythematous Acute alcoholic hepatitis Alcohol abuse, binge pattern Hepatomegaly - NS - Repeat labs in AM - Strict urine output monitoring - Thiamine and folic acid supplementation - Banana bag in AM - [facility] protocol - Hepatitis panel, pending - Continue NPO status. Patient has decreasing lipase and no abdominal pain or tenderness. Consider starting clear liquids once neurologically intact. - Daily lipase and amylase Hypokalemia -resolved Hypophosphatemia Hyponatremia -improved - NS 125 ml/hr - Sodium phosphate pharmacy to dose Current every day smoker - Nicotine patch 14mg Depression - Thiamine, folic acid -Stop Seroquel. Patient had significant confusion last night and Seroquel could exacerbate that. -Stop Topamax. Also stopped Topamax secondary to possibility of worsening confusion. - Start Prozac Hypoalbuminemia Weight loss - Dietary consult Hypomagnesemia, resolved Conjunctivitis, left -Warm compresses 3 times daily -Polytrim eyedrops 1 drop every 4 hours while awake PROPHYLAXIS DVT- compression stockings GI- pantoprazole CODE STATUS: FULL CODE DISPOSITION: Patient will be admitted for supportive care and monitorization of liver function. 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 Abnormal pancreas suggesting the possibility of chronic pancreatitis. Questionable mass within the mid pancreas measuring 2.2 cm. Three-phase contrast-enhanced CT of the pancreas is recommended to further evaluate. 2. Sludge within the gallbladder. 3. Fatty infiltration within the liver with mild hepatomegaly. CT of the abdomen and pelvis with and without contrast: 1. Findings suspicious for nonspecific colitis as described above. 2. Focal area of poor enhancement within the head and uncinate process of the pancreas. This could represent a focal area of pancreatitis as well as a small mass which occurs near the ampulla of Vater. Masses felt more likely. Recommend referral to purification supervisor for opinion whether biopsy or ERCP can be performed. This finding would be difficult to biopsy by percutaneous technique. Also, please correlate if patient has elevated amylase and lipase to indicate pancreatitis. 3. Diffuse fatty infiltration within the liver with hepatomegaly.
[2020-01-15] MEDS: Sodium Phosphate 30 MMOLE in Sodium Chloride 0.9% 250 ML IV SCH ×2 (10:43→13:04)
[2020-01-15] MEDS: Polymyxin B/Trimethoprim 10 ML Bottle EYEBOTH SCH ×3 (14:12→22:09)
[2020-01-15] MEDS: Dextrose 5%-0.9% NaCl 1,000 ML IV SCH ×2 (16:08→22:06)
[2020-01-15] MEDS ORDERED: Potassium Phosphates 15 MMOLE in Sodium Chloride 0.9% 250 ML IV SCH (20:30)
[2020-01-15] MEDS: Magnesium Sulfate/Water 2 GM in Premix Bag 1 BAG IV SCH ×2 (20:52→22:03)
[2020-01-15] MEDS ORDERED: Potassium Chloride 20 MEQ Tab.ER PO ONE (21:07)
[2020-01-15] MEDS ORDERED: Sodium Phosphate 15 MMOLE in Sodium Chloride 0.9% 250 ML IV SCH (21:10)
[2020-01-15] MEDS ORDERED: Sodium Phosphate 30 MMOLE in Sodium Chloride 0.9% 250 ML IV ONE (21:30)
[2020-01-16] MEDS: Dextrose 5%-0.9% NaCl 1,000 ML IV SCH (04:52)
[2020-01-16] MEDS: Polymyxin B/Trimethoprim 10 ML Bottle EYEBOTH SCH ×5 (06:56→21:20)
[2020-01-16] MEDS: FLUoxetine 20 MG Cap PO SCH (09:04)
[2020-01-16] MEDS: Thiamine 100 MG Tab PO SCH (09:04)
[2020-01-16] MEDS: Folic Acid 1 MG Tab PO SCH (09:05)
[2020-01-16] MEDS: Nicotine 14 MG/24 Hr Patch TRDERM SCH (09:05)
--- NOTE | 2020-01-16 10:04 | PCM.PN ---
- General Info Date of Service: 01/16/20 Admission Dx/Problem (Free Text): Alcoholic Pancreatitis Subjective Update: Carlos Alberto is alert and oriented today. He states he does not remember much of what happened yesterday. He states he is hungry and would like to get out of bed. Functional Status: Reports: Pain Controlled - Review of Systems General: Reports: Weakness, Fatigue HEENT: Denies: Eye Pain (discharge) Pulmonary: Reports: No Symptoms Cardiovascular: Reports: No Symptoms Gastrointestinal: Reports: No Symptoms Musculoskeletal: Reports: No Symptoms Skin: Reports: No Symptoms Neurological: Reports: Weakness - Patient Data Vitals - Most Recent: Last Vital Signs Temp 98.2 F 01/16/20 04:00 Pulse 112 H 01/16/20 04:00 Resp 20 01/16/20 04:00 BP 127/97 H 01/16/20 04:00 Pulse Ox 96 01/16/20 04:00 Weight - Most Recent: 164 lb 3.2 oz I&O - Last 24 Hours: Intake & Output 01/15/20 01/16/20 01/16/20 22:59 06:59 14:59 Intake Total 3083 3123 Output Total 1025 875 Balance 2050 5078 Lab Results Last 24 Hours: Laboratory Results - last 24 hr 01/15/20 01/15/20 01/16/20 Range/Units 16:37 19:50 04:50 WBC (4.23-9.07) K/mm3 RBC (4.63-6.08) M/mm3 Hgb (13.7-17.5) gm/dl Hct (40.1-51.0) % MCV (79.0-92.2) fl MCH (25.7-32.2) pg MCHC (32.2-35.5) g/dl RDW Std Deviation (35.1-43.9) fL Plt Count (163-337) K/mm3 MPV (9.4-12.3) fl Neut % (Auto) Lymph % (Auto) [place] % (Auto) Eos % (Auto) Baso % (Auto) Neut # (Auto) Lymph # (Auto) [place] # (Auto) Eos # (Auto) Baso # (Auto) Neutrophils % (Manual) (40-60) % Band Neutrophils % (0-10) % Lymphocytes % (Manual) (20-40) % Atypical Lymphs % % Monocytes % (Manual) (2-10) % Eosinophils % (Manual) (0.8-7.0) % Basophils % (Manual) (0.2-1.2) Nucleated RBCs % Manual Slide Review Platelet Estimate Polychromasia Anisocytosis Macrocytosis RBC Morph Comment Sodium 136 (136-145) mEq/L Potassium 3.8 3.5 (3.5-5.1) mEq/L Chloride 101 (98-107) mEq/L Carbon Dioxide 23 (21-32) mEq/L Anion Gap 15.5 H (5-15) BUN 2 L (7-18) mg/dL Creatinine 0.5 L (0.7-1.3) mg/dL Est Cr Clr Drug Dosing 211.03 mL/min Estimated GFR (MDRD) > 60 (>60) mL/min BUN/Creatinine Ratio 4.0 L (14-18) Glucose 134 H (74-106) mg/dL POC Glucose 91 (70-105) mg/dL Calcium 7.6 L (8.5-10.1) mg/dL Phosphorus 1.8 L 2.1 L (2.6-4.7) mg/dL Magnesium 1.7 L 2.3 (1.8-2.4) mg/dl Total Bilirubin 12.6 H (0.2-1.0) mg/dL Direct Bilirubin 10.60 H (0.0-0.2) mg/dl GGT 1519 H (15-85) U/L AST 335 H (15-37) U/L ALT 144 H (16-63) U/L Alkaline Phosphatase 368 H (46-116) U/L Troponin I < 0.017 (0.00-0.056) ng/mL Total Protein 5.4 L (6.4-8.2) g/dl Albumin 2.2 L (3.4-5.0) g/dl Globulin 3.2 gm/dL Albumin/Globulin Ratio 0.7 L (1-2) Amylase 105 (25-115) U/L Lipase 1076 H (73-393) U/L 01/16/20 Range/Units 04:50 WBC 5.28 (4.23-9.07) K/mm3 RBC 2.49 L (4.63-6.08) M/mm3 Hgb 9.3 L (13.7-17.5) gm/dl Hct 28.7 L (40.1-51.0) % MCV 115.3 H (79.0-92.2) fl MCH 37.3 H (25.7-32.2) pg MCHC 32.4 (32.2-35.5) g/dl RDW Std Deviation 62.3 H (35.1-43.9) fL Plt Count 98 L (163-337) K/mm3 MPV 11.1 (9.4-12.3) fl Neut % (Auto) Cancelled Lymph % (Auto) Cancelled [place] % (Auto) Cancelled Eos % (Auto) Cancelled Baso % (Auto) Cancelled Neut # (Auto) Cancelled Lymph # (Auto) Cancelled [place] # (Auto) Cancelled Eos # (Auto) Cancelled Baso # (Auto) Cancelled Neutrophils % (Manual) 59 (40-60) % Band Neutrophils % 5 (0-10) % Lymphocytes % (Manual) 17 L (20-40) % Atypical Lymphs % 0 % Monocytes % (Manual) 17 H (2-10) % Eosinophils % (Manual) 2 (0.8-7.0) % Basophils % (Manual) 0 L (0.2-1.2) Nucleated RBCs 3.0 % Manual Slide Review Cancelled Platelet Estimate Decreased Polychromasia 2+ moderate Anisocytosis 2+ moderate Macrocytosis 2+ moderate RBC Morph Comment Not Reportable Sodium (136-145) mEq/L Potassium (3.5-5.1) mEq/L Chloride (98-107) mEq/L Carbon Dioxide (21-32) mEq/L Anion Gap (5-15) BUN (7-18) mg/dL Creatinine (0.7-1.3) mg/dL Est Cr Clr Drug Dosing mL/min Estimated GFR (MDRD) (>60) mL/min BUN/Creatinine Ratio (14-18) Glucose (74-106) mg/dL POC Glucose (70-105) mg/dL Calcium (8.5-10.1) mg/dL Phosphorus (2.6-4.7) mg/dL Magnesium (1.8-2.4) mg/dl Total Bilirubin (0.2-1.0) mg/dL Direct Bilirubin (0.0-0.2) mg/dl GGT (15-85) U/L AST (15-37) U/L ALT (16-63) U/L Alkaline Phosphatase (46-116) U/L Troponin I (0.00-0.056) ng/mL Total Protein (6.4-8.2) g/dl Albumin (3.4-5.0) g/dl Globulin gm/dL Albumin/Globulin Ratio (1-2) Amylase (25-115) U/L Lipase (73-393) U/L Med Orders - Current: Current Medications Fluoxetine HCl (Prozac) 20 mg PO DAILY [facility] Last Admin: 01/16/20 09:04 Dose: 20 mg Folic Acid (Folic Acid) 1 mg PO DAILY [facility] Last Admin: 01/16/20 09:05 Dose: 1 mg Dextrose/Sodium Chloride (Dextrose 5%-Normal Saline) 1,000 mls @ 125 mls/hr IV ASDIRECTED [facility] Last Admin: 01/16/20 04:52 Dose: 125 mls/hr Lorazepam (Ativan) 1 - 3 mg IV ASDIRECTED [facility]; Protocol Last Admin: 01/15/20 03:15 Dose: 2 mg Lorazepam (Ativan) 1 - 3 mg PO ASDIRECTED [facility]; Protocol Last Admin: 01/15/20 01:07 Dose: 2 mg Nicotine (Habitrol) 14 mg TRDERM DAILY [facility] Last Admin: 01/16/20 09:05 Dose: 14 mg Ondansetron HCl (Zofran Odt) 4 mg PO Q6H PRN PRN Reason: nausea, able to take PO Ondansetron HCl (Zofran) 4 mg IV Q6H PRN PRN Reason: Nausea/Vomiting Polymyxin/Trimethoprim Sulfate (Polytrim Ophth Soln) 1 ml EYEBOTH Q4HWA [facility] Last Admin: 01/16/20 09:05 Dose: 1 drop Thiamine HCl (Vitamin B-1) 100 mg PO DAILY [facility] Last Admin: 01/16/20 09:04 Dose: 100 mg Discontinued Medications Acetaminophen (Tylenol) 650 mg PO NOW ONE Stop: 01/12/20 16:52 Last Admin: 01/12/20 17:54 Dose: Not Given Cyanocobalamin (Vitamin B12) 1,000 mcg IM ONETIME ONE Stop: 01/12/20 15:26 Last Admin: 01/12/20 15:52 Dose: 1,000 mcg Folic Acid (Folic Acid) 1 mg IV ONETIME ONE Stop: 01/13/20 15:26 Folic Acid (Folic Acid) 1 mg IV DAILY [facility] Last Admin: 01/14/20 09:44 Dose: 1 mg Haloperidol Lactate (Haldol) 5 mg IM ONETIME ONE Stop: 01/15/20 02:16 Last Admin: 01/15/20 02:23 Dose: 5 mg Haloperidol Lactate (Haldol) Confirm Administered Dose 5 mg .ROUTE .STK-MED ONE Stop: 01/15/20 02:19 Last Admin: 01/15/20 02:24 Dose: Not Given Lactated Ringer's (Ringers, Lactated) 1,000 mls @ 999 mls/hr IV .BOLUS ONE Stop: 01/12/20 16:25 Last Admin: 01/12/20 15:42 Dose: 999 mls/hr Lactated Ringer's (Ringers, Lactated) 1,000 mls @ 999 mls/hr IV .BOLUS ONE Stop: 01/12/20 16:27 Last Admin: 01/12/20 16:44 Dose: 999 mls/hr Potassium Chloride/Sodium Chloride (Normal Saline With 20 Meq Kcl) 1,000 mls @ 150 mls/hr IV ASDIRECTED [facility] Last Admin: 01/12/20 17:34 Dose: 150 mls/hr Sodium Chloride (Normal Saline) 1,000 mls @ 150 mls/hr IV ASDIRECTED [facility] Last Admin: 01/13/20 15:01 Dose: 150 mls/hr Lactated Ringer's (Ringers, Lactated) 1,000 mls @ 250 mls/hr IV ASDIRECTED [facility] Magnesium Sulfate 4 gm/ Premix 50 mls @ 12.5 mls/hr IV ONETIME ONE Stop: 01/12/20 22:52 Last Admin: 01/12/20 20:32 Dose: 12.5 mls/hr Potassium Chloride 10 meq/ (Premix) 100 mls @ 100 mls/hr IV Q1H [facility] Stop: 01/12/20 20:59 Last Admin: 01/12/20 22:04 Dose: 100 mls/hr Sodium Chloride (Normal Saline) 100 mls @ 60 mls/hr IV ASDIRECTED [facility] Stop: 01/13/20 16:00 Last Admin: 01/13/20 11:49 Dose: 60 mls/hr Potassium Chloride 10 meq/ (Premix) 100 mls @ 100 mls/hr IV Q1H [facility] Stop: 01/13/20 22:44 Last Admin: 01/13/20 23:39 Dose: 100 mls/hr Potassium Chloride/Sodium Chloride (Normal Saline With 40 Meq Kcl) 1,000 mls @ 150 mls/hr IV ASDIRECTED [facility] Last Admin: 01/15/20 01:08 Dose: 150 mls/hr Sodium Phosphate 60 mmole/ (Sodium Chloride) 270 mls @ 67 mls/hr IV ONETIME ONE Stop: 01/13/20 23:16 Last Admin: 01/13/20 20:09 Dose: 67 mls/hr Magnesium Sulfate 2 gm/ Premix 50 mls @ 25 mls/hr IV ONETIME ONE Stop: 01/15/20 10:29 Last Admin: 01/15/20 09:01 Dose: 25 mls/hr Sodium Chloride (Normal Saline) 1,000 mls @ 150 mls/hr IV ASDIRECTED [facility] Stop: 01/15/20 15:00 Last Admin: 01/15/20 08:30 Dose: 150 mls/hr Sodium Phosphate 30 mmole/ (Sodium Chloride) 260 mls @ 130 mls/hr IV Q2H [facility] Stop: 01/15/20 14:59 Last Admin: 01/15/20 13:04 Dose: 130 mls/hr Magnesium Sulfate 2 gm/ Premix 50 mls @ 25 mls/hr IV Q1H [facility] Stop: 01/15/20 22:29 Last Admin: 01/15/20 22:03 Dose: 25 mls/hr Potassium Phosphate 15 mmole/ (Sodium Chloride) 255 mls @ 85 mls/hr IV ASDIRECTED [facility] Stop: 01/15/20 23:29 Sodium Phosphate 30 mmole/ (Sodium Chloride) 260 mls @ 86.667 mls/hr IV ONETIME ONE Stop: 01/16/20 00:29 Last Admin: 01/15/20 21:35 Dose: 86.667 mls/hr Iopamidol (Isovue-370 (76%)) 100 ml IVPUSH ONETIME ONE Stop: 01/13/20 11:45 Last Admin: 01/13/20 11:49 Dose: 100 ml Lorazepam (Ativan) 0 mg PO ASDIRECTED [facility]; Protocol Lorazepam (Ativan) 0 mg IV ASDIRECTED [facility]; Protocol Lorazepam (Ativan) 1 mg PO ONETIME ONE Stop: 01/13/20 14:30 Last Admin: 01/13/20 15:00 Dose: 1 mg Ondansetron HCl (Zofran) 4 mg IVPUSH ONETIME ONE Stop: 01/12/20 15:26 Last Admin: 01/12/20 15:42 Dose: 4 mg Potassium Chloride (Klor-Con M20) 20 meq PO ONETIME ONE Stop: 01/15/20 21:08 Last Admin: 01/15/20 21:34 Dose: 20 meq Quetiapine Fumarate (Seroquel) 25 mg PO BEDTIME [facility] Last Admin: 01/14/20 21:29 Dose: 25 mg Sodium Chloride (Saline Flush) 10 ml FLUSH ONETIME ONE Stop: 01/13/20 11:45 Last Admin: 01/13/20 11:49 Dose: 10 ml Topiramate (Topamax) 25 mg PO BID [facility] Last Admin: 01/14/20 21:29 Dose: 25 mg - Exam Quality Assessment: No: Supplemental Oxygen General: Alert, Oriented HEENT: Pupils Equal, Mucous Membr. Moist/[place], Other (Left eye less matted and conjunctive are less red) Neck: Supple Lungs: Normal Respiratory Effort, Other (Coarse breath sounds) Cardiovascular: Regular Rate, Regular Rhythm GI/Abdominal Exam: Normal Bowel Sounds, Soft, Non-Tender, No Distention, Hepatomegaly Extremities: Normal Inspection, Normal Range of Motion, Non-Tender, No Pedal Edema, Normal Capillary Refill Skin: Warm, Dry, Intact Psy/Mental Status: Alert, Normal Affect, Normal Mood Sepsis Event Note - Evaluation Sepsis Screening Result: No Definite Risk - Focused Exam Vital Signs: Vital Signs Temp Pulse Resp BP Pulse Ox 01/16/20 04:00 98.2 F 112 H 20 127/97 H 96 01/16/20 00:00 98.4 F 96 20 121/98 H 97 Date Exam was Performed: 01/16/20 Time Exam was Performed: 12:06 - Problem List & Annotations (1) Alcohol abuse SNOMED Code(s): 95088518 Code(s): F10.10 - ALCOHOL ABUSE, UNCOMPLICATED Status: Acute Current Visit: Yes (2) Alcoholic encephalopathy SNOMED Code(s): 504177781 Code(s): G31.2 - DEGENERATION OF NERVOUS SYSTEM DUE TO ALCOHOL; F10.20 - ALCOHOL DEPENDENCE, UNCOMPLICATED Status: Acute Current Visit: Yes (3) Alcoholic hepatitis SNOMED Code(s): 836220251 Code(s): K70.10 - ALCOHOLIC HEPATITIS WITHOUT ASCITES Status: Acute Current Visit: Yes (4) Current every day smoker SNOMED Code(s): 498189727, 313983563 Code(s): F17.200 - NICOTINE DEPENDENCE, UNSPECIFIED, UNCOMPLICATED Status: Acute Current Visit: Yes (5) Hepatomegaly SNOMED Code(s): 79699337 Code(s): R16.0 - HEPATOMEGALY, NOT ELSEWHERE CLASSIFIED Status: Acute Current Visit: Yes (6) Hypoalbuminemia SNOMED Code(s): 161284391 Code(s): E88.09 - OTH DISORDERS OF PLASMA-PROTEIN METABOLISM, NEC Status: Acute Current Visit: Yes (7) Hypomagnesemia SNOMED Code(s): 841306395 Code(s): E83.42 - HYPOMAGNESEMIA Status: Acute Current Visit: Yes (8) Hyponatremia SNOMED Code(s): 06571291 Code(s): E87.1 - HYPO-OSMOLALITY AND HYPONATREMIA Status: Acute Current Visit: Yes (9) Hypophosphatemia SNOMED Code(s): 6713756 Code(s): E83.39 - OTHER DISORDERS OF PHOSPHORUS METABOLISM Status: Acute Current Visit: Yes - Problem List Review Problem List Initiated/Reviewed/Updated: Yes - My Orders Last 24 Hours: My Active Orders 01/15/20 14:00 Polymyxin B/Trimethoprim [PolyTrim Ophth Soln] 1 ml EYEBOTH Q4HWA 01/15/20 15:00 Dextrose 5%-0.9% NaCl [Dextrose 5%-Normal Saline] 1,000 ml IV ASDIRECTED 01/16/20 Breakfast Low Fat Diet [DIET] Low Fiber Diet [DIET] 01/17/20 05:11 AMYLASE [CHEM] AM CBC WITH AUTO DIFF [HEME] AM CMP [COMPREHENSIVE METABOLIC PN,CMP] [CHEM] AM LIPASE [CHEM] AM MAGNESIUM [CHEM] AM PHOSPHORUS [CHEM] AM 01/18/20 05:11 AMYLASE [CHEM] AM CBC WITH AUTO DIFF [HEME] AM CMP [COMPREHENSIVE METABOLIC PN,CMP] [CHEM] AM LIPASE [CHEM] AM MAGNESIUM [CHEM] AM PHOSPHORUS [CHEM] AM - Plan Plan:: DAY OF ADMISSION - Ethanol level zero on admission + binge alcohol drinking pattern - Admitted with CIWA protocol - No need for steroid use due to Maddrey score of 8 - Negative Tylenol and salicylate level - Positive UDS for THC - Normal coagulation studies, no need for vitamin K - Normal kidney function - Smoked 0.5ppd - Depression - Worsening depression as per patient - Previously treated with paroxetine, he discontinued due to sexual dysfunction - Denies any suicidal or homicidal ideation - Denies any previous psychiatric admissions DAY 1 - Evaluated by psychiatry - Recommended initiating Seroquel, Topamax, Prozac and Ativan as needed - Outpatient rehabilitation - Complete abdominal US with mas in pancreatic head recommending triple phase CT - Electrolytes continue to be abnormal, will replace - Liver function tests still significantly elevate but trending down - Patient remains NPO - Afebrile - 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 Case discussed with [facility] in [place], [place]--> States that the findings on pancreatic head appear to be same density of the rest of the pancreas and does not appear to be a mas There is some stranding around the pancreas which represents acute edema and stated patient likely is having acute pancreatitis without pain Recommended outpatient endoscopic ultrasound 4 weeks after resolution of current clinical picture DAY 2 - LFTs trending down - Pancreatic enzymes trending down - No pain - Is hungry - Afebrile - CIWA negative Day 3 * Increasing confusion and hallucination overnight * Required significant Ativan and 5 mg of Haldol due to hallucination, confusion , and concern for self-harm. * Transfer to ICU for close monitoring and one-on-one care. * Lipase decreasin down to 854 * Amylase stable at 119 * Bilirubin increased to 14, liver enzymes decreased from admission * PT and INR slightly elevated at 13.1 and 1.22 respectively * Patient n.p.o. but will advance diet as tolerated once his mental status improves * Ammonia level is normal at 28. This makes it less likely to be hepatic encephalopathy. * Phosphorus 0.9 * Alcoholic encephalopathy * Left eye matted and conjunctiva is erythematous Day 4 * Significantly improved mentation today. Did not receive any more Ativan yesterday afternoon or evening. * Patient denies having any abdominal pain. * Elevated lipase likely secondary to either the pancreatic mass or possibly chronic pancreatitis. * Start a low residual low-fat diet today. * Total bilirubin 12.6, direct 10.6, GGT 1519, AST 335, ALT 144, alkaline phosphatase 368, * Phosphorus 2.1 and potassium 3.5 Acute alcoholic hepatitis Alcohol abuse, binge pattern Hepatomegaly - NS - Repeat labs in AM - Thiamine and folic acid supplementation - [facility] protocol -Viral hepatitis panel, negative -Start low residual, low-fat diet. -Stop daily lipase and amylase Hypokalemia -resolved Hypophosphatemia Hyponatremia -improved -If able to take orally will stop IV fluids -Potassium phosphate pharmacy to dose Current every day smoker - Nicotine patch 14mg Depression - Thiamine, folic acid -Stop Seroquel. Patient had significant confusion last night and Seroquel could exacerbate that. -Stop Topamax. Also stopped Topamax secondary to possibility of worsening confusion. - Start Prozac Hypoalbuminemia Weight loss - Dietary consult Hypomagnesemia, resolved Conjunctivitis, left -Warm compresses 3 times daily -Polytrim eyedrops 1 drop every 4 hours while awake PROPHYLAXIS DVT- compression stockings GI- pantoprazole CODE STATUS: FULL CODE DISPOSITION: Patient will be admitted for supportive care and monitorization of liver function. 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 Abnormal pancreas suggesting the possibility of chronic pancreatitis. Questionable mass within the mid pancreas measuring 2.2 cm. Three-phase contrast-enhanced CT of the pancreas is recommended to further evaluate. 2. Sludge within the gallbladder. 3. Fatty infiltration within the liver with mild hepatomegaly. CT of the abdomen and pelvis with and without contrast: 1. Findings suspicious for nonspecific colitis as described above. 2. Focal area of poor enhancement within the head and uncinate process of the pancreas. This could represent a focal area of pancreatitis as well as a small mass which occurs near the ampulla of Vater. Masses felt more likely. Recommend referral to electrical engineering designer for opinion whether biopsy or ERCP can be performed. This finding would be difficult to biopsy by percutaneous technique. Also, please correlate if patient has elevated amylase and lipase to indicate pancreatitis. 3. Diffuse fatty infiltration within the liver with hepatomegaly.
[2020-01-16] MEDS ORDERED: Potassium Phosphates 30 MMOLE in Sodium Chloride 0.9% 500 ML IV ONE (11:30)
[2020-01-17] MEDS: Polymyxin B/Trimethoprim 10 ML Bottle EYEBOTH SCH ×5 (07:01→21:35)
[2020-01-17] MEDS: Thiamine 100 MG Tab PO SCH (08:58)
[2020-01-17] MEDS: Nicotine 14 MG/24 Hr Patch TRDERM SCH (08:58)
[2020-01-17] MEDS: Folic Acid 1 MG Tab PO SCH (08:58)
[2020-01-17] MEDS: FLUoxetine 20 MG Cap PO SCH (08:58)
[2020-01-17] MEDS ORDERED: Potassium Phosphates 30 MMOLE in Sodium Chloride 0.9% 500 ML IV ONE (09:00)
--- NOTE | 2020-01-17 11:00 | PCM.PN ---
- General Info Date of Service: 01/17/20 Admission Dx/Problem (Free Text): Alcoholic Pancreatitis Functional Status: Reports: Pain Controlled, Tolerating Diet, Ambulating, Urinating. Denies: New Symptoms - Review of Systems General: Reports: Weakness, Fatigue (has not been sleeping well ), Appetite. Denies: Fever, Malaise, Chills HEENT: Reports: Eye Pain (improving ). Denies: Headaches, Sore Throat Pulmonary: Reports: No Symptoms. Denies: Shortness of Breath, Pleuritic Chest Pain, Cough, Sputum, Wheezing Cardiovascular: Reports: No Symptoms. Denies: Chest Pain, Palpitations, Dyspnea on Exertion, Edema Gastrointestinal: Reports: No Symptoms. Denies: Abdominal Pain, Constipation, Diarrhea, Nausea, Vomiting Genitourinary: Reports: No Symptoms. Denies: Pain Musculoskeletal: Reports: No Symptoms Skin: Reports: Jaundice Neurological: Reports: No Symptoms. Denies: Confusion, Difficulty Walking, Weakness, Gait Disturbance Psychiatric: Reports: No Symptoms - Patient Data Vitals - Most Recent: Last Vital Signs Temp 98.1 F 01/17/20 03:52 Pulse 113 H 01/17/20 03:52 Resp 16 01/17/20 03:52 BP 111/76 01/17/20 03:52 Pulse Ox 100 01/17/20 03:52 Weight - Most Recent: 156 lb 1.6 oz I&O - Last 24 Hours: Intake & Output 01/16/20 01/17/20 01/17/20 22:59 06:59 14:59 Intake Total 500 600 Output Total 600 1450 Balance -100 -850 Lab Results Last 24 Hours: Laboratory Results - last 24 hr 01/13/20 01/17/20 01/17/20 Range/Units 05:34 05:05 05:05 WBC 7.00 (4.23-9.07) K/mm3 RBC 2.66 L (4.63-6.08) M/mm3 Hgb 10.1 L (13.7-17.5) gm/dl Hct 30.9 L (40.1-51.0) % MCV 116.2 H (79.0-92.2) fl MCH 38.0 H (25.7-32.2) pg MCHC 32.7 (32.2-35.5) g/dl RDW Std Deviation 68.3 H (35.1-43.9) fL Plt Count 120 L (163-337) K/mm3 MPV 11.6 (9.4-12.3) fl Neut % (Auto) 61.0 (34.0-67.9) % Lymph % (Auto) 20.7 L (21.8-53.1) % [place] % (Auto) 16.0 H (5.3-12.2) % Eos % (Auto) 1.0 (0.8-7.0) Baso % (Auto) 0.6 (0.1-1.2) % Neut # (Auto) 4.27 (1.78-5.38) K/mm3 Lymph # (Auto) 1.45 (1.32-3.57) K/mm3 [place] # (Auto) 1.12 H (0.30-0.82) K/mm3 Eos # (Auto) 0.07 (0.04-0.54) K/mm3 Baso # (Auto) 0.04 (0.01-0.08) K/mm3 Manual Slide Review Abnormal smear Sodium 135 L (136-145) mEq/L Potassium 3.7 (3.5-5.1) mEq/L Chloride 101 (98-107) mEq/L Carbon Dioxide 23 (21-32) mEq/L Anion Gap 14.7 (5-15) BUN 2 L (7-18) mg/dL Creatinine 0.5 L (0.7-1.3) mg/dL Est Cr Clr Drug Dosing 200.62 mL/min Estimated GFR (MDRD) > 60 (>60) mL/min BUN/Creatinine Ratio 4.0 L (14-18) Glucose 87 (74-106) mg/dL Calcium 8.6 (8.5-10.1) mg/dL Phosphorus 2.2 L (2.6-4.7) mg/dL Magnesium 1.9 (1.8-2.4) mg/dl Total Bilirubin 13.0 H (0.2-1.0) mg/dL Direct Bilirubin 11.10 H (0.0-0.2) mg/dl GGT 1560 H (15-85) U/L AST 304 H (15-37) U/L ALT 146 H (16-63) U/L Alkaline Phosphatase 414 H (46-116) U/L Total Protein 5.9 L (6.4-8.2) g/dl Albumin 2.4 L (3.4-5.0) g/dl Globulin 3.5 gm/dL Albumin/Globulin Ratio 0.7 L (1-2) CA 19-9 Antigen 521 H (0-35) U/mL Med Orders - Current: Current Medications Fluoxetine HCl (Prozac) 20 mg PO DAILY [facility] Last Admin: 01/17/20 08:58 Dose: 20 mg Folic Acid (Folic Acid) 1 mg PO DAILY [facility] Last Admin: 01/17/20 08:58 Dose: 1 mg Potassium Phosphate 30 mmole/ (Sodium Chloride) 510 mls @ 102 mls/hr IV ONETIME ONE Stop: 01/17/20 13:59 Last Admin: 01/17/20 09:00 Dose: 102 mls/hr Lorazepam (Ativan) 1 - 3 mg IV ASDIRECTED [facility]; Protocol Last Admin: 01/15/20 03:15 Dose: 2 mg Lorazepam (Ativan) 1 - 3 mg PO ASDIRECTED [facility]; Protocol Last Admin: 01/15/20 01:07 Dose: 2 mg Nicotine (Habitrol) 14 mg TRDERM DAILY [facility] Last Admin: 01/17/20 08:58 Dose: 14 mg Ondansetron HCl (Zofran Odt) 4 mg PO Q6H PRN PRN Reason: nausea, able to take PO Ondansetron HCl (Zofran) 4 mg IV Q6H PRN PRN Reason: Nausea/Vomiting Polymyxin/Trimethoprim Sulfate (Polytrim Ophth Soln) 1 ml EYEBOTH Q4HWA [facility] Last Admin: 01/17/20 07:01 Dose: Not Given Sodium Phosphate (Neutra-Phos) 250 mg PO QID [facility] Thiamine HCl (Vitamin B-1) 100 mg PO DAILY [facility] Last Admin: 01/17/20 08:58 Dose: 100 mg Discontinued Medications Acetaminophen (Tylenol) 650 mg PO NOW ONE Stop: 01/12/20 16:52 Last Admin: 01/12/20 17:54 Dose: Not Given Cyanocobalamin (Vitamin B12) 1,000 mcg IM ONETIME ONE Stop: 01/12/20 15:26 Last Admin: 01/12/20 15:52 Dose: 1,000 mcg Folic Acid (Folic Acid) 1 mg IV ONETIME ONE Stop: 01/13/20 15:26 Folic Acid (Folic Acid) 1 mg IV DAILY [facility] Last Admin: 01/14/20 09:44 Dose: 1 mg Haloperidol Lactate (Haldol) 5 mg IM ONETIME ONE Stop: 01/15/20 02:16 Last Admin: 01/15/20 02:23 Dose: 5 mg Haloperidol Lactate (Haldol) Confirm Administered Dose 5 mg .ROUTE .STK-MED ONE Stop: 01/15/20 02:19 Last Admin: 01/15/20 02:24 Dose: Not Given Lactated Ringer's (Ringers, Lactated) 1,000 mls @ 999 mls/hr IV .BOLUS ONE Stop: 01/12/20 16:25 Last Admin: 01/12/20 15:42 Dose: 999 mls/hr Lactated Ringer's (Ringers, Lactated) 1,000 mls @ 999 mls/hr IV .BOLUS ONE Stop: 01/12/20 16:27 Last Admin: 01/12/20 16:44 Dose: 999 mls/hr Potassium Chloride/Sodium Chloride (Normal Saline With 20 Meq Kcl) 1,000 mls @ 150 mls/hr IV ASDIRECTED [facility] Last Admin: 01/12/20 17:34 Dose: 150 mls/hr Sodium Chloride (Normal Saline) 1,000 mls @ 150 mls/hr IV ASDIRECTED [facility] Last Admin: 01/13/20 15:01 Dose: 150 mls/hr Lactated Ringer's (Ringers, Lactated) 1,000 mls @ 250 mls/hr IV ASDIRECTED [facility] Magnesium Sulfate 4 gm/ Premix 50 mls @ 12.5 mls/hr IV ONETIME ONE Stop: 01/12/20 22:52 Last Admin: 01/12/20 20:32 Dose: 12.5 mls/hr Potassium Chloride 10 meq/ (Premix) 100 mls @ 100 mls/hr IV Q1H [facility] Stop: 01/12/20 20:59 Last Admin: 01/12/20 22:04 Dose: 100 mls/hr Sodium Chloride (Normal Saline) 100 mls @ 60 mls/hr IV ASDIRECTED [facility] Stop: 01/13/20 16:00 Last Admin: 01/13/20 11:49 Dose: 60 mls/hr Potassium Chloride 10 meq/ (Premix) 100 mls @ 100 mls/hr IV Q1H [facility] Stop: 01/13/20 22:44 Last Admin: 01/13/20 23:39 Dose: 100 mls/hr Potassium Chloride/Sodium Chloride (Normal Saline With 40 Meq Kcl) 1,000 mls @ 150 mls/hr IV ASDIRECTED [facility] Last Admin: 01/15/20 01:08 Dose: 150 mls/hr Sodium Phosphate 60 mmole/ (Sodium Chloride) 270 mls @ 67 mls/hr IV ONETIME ONE Stop: 01/13/20 23:16 Last Admin: 01/13/20 20:09 Dose: 67 mls/hr Magnesium Sulfate 2 gm/ Premix 50 mls @ 25 mls/hr IV ONETIME ONE Stop: 01/15/20 10:29 Last Admin: 01/15/20 09:01 Dose: 25 mls/hr Sodium Chloride (Normal Saline) 1,000 mls @ 150 mls/hr IV ASDIRECTED [facility] Stop: 01/15/20 15:00 Last Admin: 01/15/20 08:30 Dose: 150 mls/hr Dextrose/Sodium Chloride (Dextrose 5%-Normal Saline) 1,000 mls @ 125 mls/hr IV ASDIRECTED [facility] Last Admin: 01/16/20 04:52 Dose: 125 mls/hr Sodium Phosphate 30 mmole/ (Sodium Chloride) 260 mls @ 130 mls/hr IV Q2H [facility] Stop: 01/15/20 14:59 Last Admin: 01/15/20 13:04 Dose: 130 mls/hr Magnesium Sulfate 2 gm/ Premix 50 mls @ 25 mls/hr IV Q1H [facility] Stop: 01/15/20 22:29 Last Admin: 01/15/20 22:03 Dose: 25 mls/hr Potassium Phosphate 15 mmole/ (Sodium Chloride) 255 mls @ 85 mls/hr IV ASDIRECTED [facility] Stop: 01/15/20 23:29 Sodium Phosphate 30 mmole/ (Sodium Chloride) 260 mls @ 86.667 mls/hr IV ONETIME ONE Stop: 01/16/20 00:29 Last Admin: 01/15/20 21:35 Dose: 86.667 mls/hr Potassium Phosphate 30 mmole/ (Sodium Chloride) 510 mls @ 102 mls/hr IV ONETIME ONE Stop: 01/16/20 16:29 Last Admin: 01/16/20 11:06 Dose: 102 mls/hr Iopamidol (Isovue-370 (76%)) 100 ml IVPUSH ONETIME ONE Stop: 01/13/20 11:45 Last Admin: 01/13/20 11:49 Dose: 100 ml Lorazepam (Ativan) 0 mg PO ASDIRECTED [facility]; Protocol Lorazepam (Ativan) 0 mg IV ASDIRECTED [facility]; Protocol Lorazepam (Ativan) 1 mg PO ONETIME ONE Stop: 01/13/20 14:30 Last Admin: 01/13/20 15:00 Dose: 1 mg Ondansetron HCl (Zofran) 4 mg IVPUSH ONETIME ONE Stop: 01/12/20 15:26 Last Admin: 01/12/20 15:42 Dose: 4 mg Potassium Chloride (Klor-Con M20) 20 meq PO ONETIME ONE Stop: 01/15/20 21:08 Last Admin: 01/15/20 21:34 Dose: 20 meq Quetiapine Fumarate (Seroquel) 25 mg PO BEDTIME [facility] Last Admin: 01/14/20 21:29 Dose: 25 mg Sodium Chloride (Saline Flush) 10 ml FLUSH ONETIME ONE Stop: 01/13/20 11:45 Last Admin: 01/13/20 11:49 Dose: 10 ml Topiramate (Topamax) 25 mg PO BID [facility] Last Admin: 01/14/20 21:29 Dose: 25 mg - Exam Quality Assessment: DVT Prophylaxis General: Alert, Oriented, Cooperative, No Acute Distress, Other HEENT: Pupils Equal, Pupils Reactive, Mucous Membr. Moist/Moody, Scleral Icterus , Other (Injected conjunctiva ) Neck: Supple, Trachea Midline Lungs: Clear to Auscultation, Normal Respiratory Effort Cardiovascular: Regular Rate, Regular Rhythm GI/Abdominal Exam: Normal Bowel Sounds, Soft, Non-Tender, No Distention, No Abnormal Bruit, Hepatomegaly (Male) Exam: Deferred Back Exam: Normal Inspection, Full Range of Motion Extremities: Normal Inspection, Normal Range of Motion, Non-Tender, No Pedal Edema, Normal Capillary Refill Skin: Warm, Dry, Intact, Other (Jaundiced ) Neurological: No New Focal Deficit Psy/Mental Status: Alert Sepsis Event Note - Evaluation Sepsis Screening Result: No Definite Risk - Focused Exam Vital Signs: Vital Signs Temp Pulse Resp BP Pulse Ox 01/17/20 03:52 98.1 F 113 H 16 111/76 100 Date Exam was Performed: 01/17/20 Time Exam was Performed: 13:08 - Problem List & Annotations (1) Hyperbilirubinemia SNOMED Code(s): 96087681 Code(s): E80.6 - OTHER DISORDERS OF BILIRUBIN METABOLISM Status: Acute Priority: High Current Visit: Yes (2) Alcohol abuse SNOMED Code(s): 87935681 Code(s): F10.10 - ALCOHOL ABUSE, UNCOMPLICATED Status: Chronic Priority: High Current Visit: Yes (3) Alcoholic encephalopathy SNOMED Code(s): 231263575 Code(s): G31.2 - DEGENERATION OF NERVOUS SYSTEM DUE TO ALCOHOL; F10.20 - ALCOHOL DEPENDENCE, UNCOMPLICATED Status: Acute Priority: High Current Visit: Yes (4) Alcoholic hepatitis SNOMED Code(s): 891818655 Code(s): K70.10 - ALCOHOLIC HEPATITIS WITHOUT ASCITES Status: Acute Priority: High Current Visit: Yes Qualifiers: Ascites presence: unspecified Qualified Code(s): K70.10 - Alcoholic hepatitis without ascites (5) Current every day smoker SNOMED Code(s): 585588699, 608459045 Code(s): F17.200 - NICOTINE DEPENDENCE, UNSPECIFIED, UNCOMPLICATED Status: Chronic Priority: Medium Current Visit: Yes (6) Hepatomegaly SNOMED Code(s): 47559930 Code(s): R16.0 - HEPATOMEGALY, NOT ELSEWHERE CLASSIFIED Status: Chronic Priority: High Current Visit: Yes (7) Hypoalbuminemia SNOMED Code(s): 783836627 Code(s): E88.09 - OTH DISORDERS OF PLASMA-PROTEIN METABOLISM, NEC Status: Acute Priority: High Current Visit: Yes (8) Hypokalemia SNOMED Code(s): 04307570 Code(s): E87.6 - HYPOKALEMIA Status: Resolved Priority: High Current Visit: Yes (9) Hypomagnesemia SNOMED Code(s): 668554322 Code(s): E83.42 - HYPOMAGNESEMIA Status: Resolved Priority: High Current Visit: Yes (10) Hyponatremia SNOMED Code(s): 50165878 Code(s): E87.1 - HYPO-OSMOLALITY AND HYPONATREMIA Status: Acute Priority : High Current Visit: Yes (11) Hypophosphatemia SNOMED Code(s): 0702843 Code(s): E83.39 - OTHER DISORDERS OF PHOSPHORUS METABOLISM Status: Acute Priority: High Current Visit: Yes (12) Macrocytic anemia SNOMED Code(s): 29276160 Code(s): D53.9 - NUTRITIONAL ANEMIA, UNSPECIFIED Status: Acute Priority: High Current Visit: Yes (13) Marijuana smoker SNOMED Code(s): 379677029 Code(s): F12.90 - CANNABIS USE, UNSPECIFIED, UNCOMPLICATED Status: Chronic Priority: Medium Current Visit: Yes (14) Pancreatic mass SNOMED Code(s): 081381001 Code(s): K86.89 - OTHER SPECIFIED DISEASES OF PANCREAS Status: Acute Priority: High Current Visit: Yes (15) Thrombocytopenia SNOMED Code(s): 461041313 Code(s): D69.6 - THROMBOCYTOPENIA, UNSPECIFIED Status: Acute Priority: High Current Visit: Yes (16) Anxiety SNOMED Code(s): 73861105 Code(s): F41.9 - ANXIETY DISORDER, UNSPECIFIED Status: Chronic Current Visit: No (17) Degenerative disc disease at L5-S1 level SNOMED Code(s): 96000344 Code(s): M51.36 - OTHER INTERVERTEBRAL DISC DEGENERATION, LUMBAR REGION Status: Chronic Priority: Medium Current Visit: No (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: Chronic Current Visit: No Qualifiers: Spinal osteoarthritis complication: with radiculopathy Qualified Code(s): M47.26 - Other spondylosis with radiculopathy, lumbar region (19) Depression SNOMED Code(s): 37753114 Code(s): F32.9 - MAJOR DEPRESSIVE DISORDER, SINGLE EPISODE, UNSPECIFIED Status: Chronic Priority: Medium Current Visit: No Qualifiers: Depression Type: other depression Qualified Code(s): F32.89 - Other specified depressive episodes (20) Low back pain SNOMED Code(s): 955927291 Code(s): M54.5 - LOW BACK PAIN Status: Chronic Priority: Medium Current Visit: No Qualifiers: Chronicity: unspecified Back pain laterality: unspecified (21) CA19-9 above reference range SNOMED Code(s): 07138456076717888 Code(s): XZV3650 - Status: Acute Priority: High Current Visit: Yes - Problem List Review Problem List Initiated/Reviewed/Updated: Yes - My Orders Last 24 Hours: My Active Orders 01/17/20 09:00 Potassium Phosphates 30 mmole Sodium Chloride 0.9% [Normal Saline] 500 ml IV ONETIME 01/17/20 09:36 Abdomen wo Cont [MR] Routine 01/17/20 13:00 Phosphorus #1 [Neutra-Phos] 250 mg PO QID 01/17/20 Lunch NPO Now [Nothing per Oral Now Diet] [DIET] - Plan Plan:: DAY OF ADMISSION - Ethanol level zero on admission + binge alcohol drinking pattern - Admitted with CIWA protocol - No need for steroid use due to Maddrey score of 8 - Negative Tylenol and salicylate level - Positive UDS for THC - Normal coagulation studies, no need for vitamin K - Normal kidney function - Smoked 0.5ppd - Depression - Worsening depression as per patient - Previously treated with paroxetine, he discontinued due to sexual dysfunction - Denies any suicidal or homicidal ideation - Denies any previous psychiatric admissions DAY 1 - Evaluated by psychiatry - Recommended initiating Seroquel, Topamax, Prozac and Ativan as needed - Outpatient rehabilitation - Complete abdominal US with mas in pancreatic head recommending triple phase CT - Electrolytes continue to be abnormal, will replace - Liver function tests still significantly elevate but trending down - Patient remains NPO - Afebrile - 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 Case discussed with [facility] in [place], [place]--> States that the findings on pancreatic head appear to be same density of the rest of the pancreas and does not appear to be a mas There is some stranding around the pancreas which represents acute edema and stated patient likely is having acute pancreatitis without pain Recommended outpatient endoscopic ultrasound 4 weeks after resolution of current clinical picture DAY 2 - LFTs trending down - Pancreatic enzymes trending down - No pain - Is hungry - Afebrile - CIWA negative Day 3 * Increasing confusion and hallucination overnight * Required significant Ativan and 5 mg of Haldol due to hallucination, confusion , and concern for self-harm. * Transfer to ICU for close monitoring and one-on-one care. * Lipase decreasin down to 854 * Amylase stable at 119 * Bilirubin increased to 14, liver enzymes decreased from admission * PT and INR slightly elevated at 13.1 and 1.22 respectively * Patient n.p.o. but will advance diet as tolerated once his mental status improves * Ammonia level is normal at 28. This makes it less likely to be hepatic encephalopathy. * Phosphorus 0.9 * Alcoholic encephalopathy * Left eye matted and conjunctiva is erythematous Day 4 * Significantly improved mentation today. Did not receive any more Ativan yesterday afternoon or evening. * Patient denies having any abdominal pain. * Elevated lipase likely secondary to either the pancreatic mass or possibly chronic pancreatitis. * Start a low residual low-fat diet today. * Total bilirubin 12.6, direct 10.6, GGT 1519, AST 335, ALT 144, alkaline phosphatase 368, * Phosphorus 2.1 and potassium 3.5 Day 5 * Total bilirubin 13.0, direct 11.1, GGT 1560, AST 304, ALT 146, alkaline phosphatase 414 * NPO now until after MRCP * Contacted [facility] one-call - discussed patient with GI. Will order MRCP at their recommendation. * Repeat labs today * Start daily PO phosphorous * Phosphorous 2.2 Acute alcoholic hepatitis Alcohol abuse, binge pattern Hepatomegaly - Repeat labs in AM - Thiamine and folic acid supplementation - [facility] protocol - Viral hepatitis panel, negative - NPO until after scan - Awaiting results of MRCP Hypokalemia -resolved Hypophosphatemia Hyponatremia -improved -K Phos IV now -Start daily phosphorous supplementation Current every day smoker - Nicotine patch 14mg Depression - Thiamine, folic acid - Stop Seroquel. Patient had significant confusion last night and Seroquel could exacerbate that. - Stop Topamax. Also stopped Topamax secondary to possibility of worsening confusion. - Start Prozac - Will need psychiatry follow-up Hypoalbuminemia Weight loss - Dietary consult Hypomagnesemia, resolved Conjunctivitis, left -Warm compresses 3 times daily -Polytrim eyedrops 1 drop every 4 hours while awake PROPHYLAXIS DVT- compression stockings GI- pantoprazole CODE STATUS: FULL CODE DISPOSITION: Patient will be admitted for supportive care and monitorization of liver function. 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 Abnormal pancreas suggesting the possibility of chronic pancreatitis. Questionable mass within the mid pancreas measuring 2.2 cm. Three-phase contrast-enhanced CT of the pancreas is recommended to further evaluate. 2. Sludge within the gallbladder. 3. Fatty infiltration within the liver with mild hepatomegaly. CT of the abdomen and pelvis with and without contrast: 1. Findings suspicious for nonspecific colitis as described above. 2. Focal area of poor enhancement within the head and uncinate process of the pancreas. This could represent a focal area of pancreatitis as well as a small mass which occurs near the ampulla of Vater. Masses felt more likely. Recommend referral to electronic warfare linguist for opinion whether biopsy or ERCP can be performed. This finding would be difficult to biopsy by percutaneous technique. Also, please correlate if patient has elevated amylase and lipase to indicate pancreatitis. 3. Diffuse fatty infiltration within the liver with hepatomegaly.
[2020-01-17] MEDS: Phosphorus #1 250 MG Tab PO SCH ×3 (14:12→21:36)
--- NOTE | 2020-01-17 14:40 | MR ---
MRI abdomen (without contrast) and MRCP. Technique: Various noncontrast sequences were obtained in axial and coronal planes as well as MRCP study. Comparison: Previous CT abdomen and pelvis exam of 01/13/20. Findings: Fatty infiltration is noted within the liver. Liver is also generous in size. Previously questioned pancreatic abnormality within the uncinate and head of the pancreas is not seen on this exam although contrast study was not performed. There is mild amount of ascites being seen around the liver and spleen and around the pancreas which raises the question of pancreatitis. Previous mass may represent change from pancreatitis rather than mass. No filling defects are seen within the CHD and CBD on the MRCP study. CHD and CBD size appears normal. Impression: 1. Small amount of ascites around the liver and spleen and pancreas are seen. These findings raise the question of pancreatitis. Previous mass within the pancreas not seen on current exam although no contrast was utilized to confirm. Previous mass may represent change from pancreatitis rather than actual pancreatic mass. Follow-up contrast study by CT recommended in 6 months to confirm disappearance. 2. Fatty infiltration within the liver. Diagnostic code #3 This report was dictated in MDT
[2020-01-17] MEDS: D5 1/2 NS w/ 20 mEq/L KCl 1,000 ML IV SCH (16:21)
[2020-01-17] MEDS: URSODIOL 250 MG TAB PO SCH (16:21)
[2020-01-18] MEDS: URSODIOL 250 MG TAB PO SCH ×3 (06:43→17:00)
[2020-01-18] MEDS: Polymyxin B/Trimethoprim 10 ML Bottle EYEBOTH SCH ×6 (06:43→23:38)
[2020-01-18] MEDS: D5 1/2 NS w/ 20 mEq/L KCl 1,000 ML IV SCH ×2 (06:45→20:43)
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
--- NOTE | 2020-01-18 08:05 | PN ---
DATE OF SERVICE: 01/17/2020 ADDENDUM: The patient was seen, examined, and discussed by me with Femi Weber PA-C. Mr. Crystal is a 39-year-old white male with past medical history significant for chronic alcoholism and history of prior pancreatitis, who was admitted to the hospital on 01/12/2020, from emergency room where the patient presented with nausea, vomiting, and weakness for approximately 2 weeks. Further account that was done in the emergency room revealed that the patient has acute on top of chronic pancreatitis and alcoholic hepatitis with significant elevation of LFTs. On top of this, the patient was found with thrombocytopenia that is believed to be part of the patient's acute on chronic alcoholic hepatitis. The patient was admitted to Med-Surg floor telemetry. He received appropriate medications for potential alcohol withdrawal and vitamins for patient's alcoholism as we kept watching the patient's LFTs and signs of pancreatitis. Clinically, the patient has transfer improvement, but his blood test results show worsening of LFTs, specifically bilirubin went up as high as 15.0 today. The patient still has very high LFTs and lipase is also high. A CT scan that was done showed that the patient has possible pancreatic mass versus acute focus of pancreatitis, that all makes the patient's condition and prognosis very severe. after talking to tertiary facility consultants, decision is to go ahead with MRCP, trying to address the patient's severe cholestatic alcoholic hepatitis. We will start the patient on ursodiol 250 mg p.o. three times a day with meals. We will keep watching the patient clinically and we will keep watching the patient's blood test results. The patient will stay in-house. Condition is very serious and if we do not see any obvious improvement in the patient's lab test results and general condition within the next 1 or 2 days, we will consider transfer to tertiary facility for ERCP and management by multispecialty group. Full details of the patient's review of systems, interval test results, physical exam, medications, and further plan of management, please see note prepared by Femi Weber PA-C. [facility] /[id number]
[2020-01-18] MEDS: Phosphorus #1 250 MG Tab PO SCH ×4 (09:49→20:42)
[2020-01-18] MEDS: Thiamine 100 MG Tab PO SCH (09:49)
[2020-01-18] MEDS: FLUoxetine 20 MG Cap PO SCH (09:49)
[2020-01-18] MEDS: Folic Acid 1 MG Tab PO SCH (09:49)
[2020-01-18] MEDS: Nicotine 14 MG/24 Hr Patch TRDERM SCH (09:50)
--- NOTE | 2020-01-18 13:02 | PN ---
DATE OF SERVICE: 01/18/2020 ADDENDUM: The patient was seen, examined, and discussed by me with Femi Weber PA-C. Mr. Crystal overall reported today that he feels well. He does not have any acute complaints. The patient does participate in physical therapy. No nausea, no vomiting. The patient is still very weak but weakness also improving. In blood test results today, we do see modest but improvement of LFTs, lipase, and bilirubin that is still very high at 11.2. MRCP was done, did not reveal any suspicious mass or any obstruction, so diagnosis remains the same. Acute on chronic alcoholic pancreatitis, alcohol-induced cholestatic hepatitis, and gallbladder disease that still requires treatment, but treatment can be done only after the patient's condition hopefully stabilizes. We will continue physical therapy. We will continue diet. We will continue ursodiol 250 mg p.o. 3 times a day with meals. We will keep watch on labs and physical condition. I hope in 2 to 3 days, the patient's condition will be good enough for discharge, but discharge suggested to rehab facility for alcohol abuse, that hopefully will be arranged. For details of the patient's review of systems, interval test results, physical exam, medications, and further plan of management, please see note prepared by Femi Weber PA-C. [facility] /[id number]
[2020-01-18] MEDS ORDERED: Magnesium Sulfate/Water 2 GM in Premix Bag 1 BAG IV ONE (17:51)
[2020-01-19] MEDS: URSODIOL 250 MG TAB PO SCH ×3 (06:50→16:57)
[2020-01-19] MEDS: Polymyxin B/Trimethoprim 10 ML Bottle EYEBOTH SCH ×6 (06:50→21:41)
[2020-01-19] MEDS: FLUoxetine 20 MG Cap PO SCH (09:43)
[2020-01-19] MEDS: Folic Acid 1 MG Tab PO SCH (09:43)
[2020-01-19] MEDS: Phosphorus #1 250 MG Tab PO SCH ×4 (09:44→21:41)
[2020-01-19] MEDS: Nicotine 14 MG/24 Hr Patch TRDERM SCH (09:44)
[2020-01-19] MEDS: Thiamine 100 MG Tab PO SCH (09:44)
[2020-01-19] MEDS ORDERED: Lactulose Soln 10 GM/15 ML 30 ML UD Cup PO ONE (10:15)
[2020-01-19] MEDS ORDERED: Albumin 25% 12.5 GM/50 ML BAG IV ONE ×2 (10:31→11:00)
[2020-01-19] MEDS ORDERED: Potassium Chloride 20 MEQ Tab.ER PO ONE (10:35)
--- NOTE | 2020-01-19 10:43 | PCM.PN ---
- General Info Date of Service: 01/19/20 - Review of Systems General: Reports: Fever Systems Review Comment:: The patient was seen and examined by me, and discussed with Dr. Soliman. At time of my exam, patient resting in bed. Does not appear to be in acute distress. Patient still looks jaundiced, but not as compared to yesterday. The patient has had 2 bowel movements today. Denies any abdominal pain, denies any nausea vomiting no reports of chest pain or palpitations. No fevers overnight patient's vital signs relatively stable nursing staff did not report any acute complaints with the patient overnight. - Patient Data Vitals - Most Recent: Last Vital Signs Temp 98.0 F 01/19/20 09:26 Pulse 100 01/19/20 09:26 Resp 18 01/19/20 09:26 BP 92/71 01/19/20 09:26 Pulse Ox 100 01/19/20 09:26 Weight - Most Recent: 160 lb I&O - Last 24 Hours: Intake & Output 01/18/20 01/19/20 01/19/20 22:59 06:59 14:59 Intake Total 2404 2750 Output Total 1999 2950 Balance 404 -200 Lab Results Last 24 Hours: Laboratory Results - last 24 hr 01/19/20 01/19/20 Range/Units 05:26 05:26 WBC 6.47 (4.23-9.07) K/mm3 RBC 2.62 L (4.63-6.08) M/mm3 Hgb 9.8 L (13.7-17.5) gm/dl Hct 30.6 L (40.1-51.0) % MCV 116.8 H (79.0-92.2) fl MCH 37.4 H (25.7-32.2) pg MCHC 32.0 L (32.2-35.5) g/dl RDW Std Deviation 69.3 H (35.1-43.9) fL Plt Count 135 L (163-337) K/mm3 MPV 11.5 (9.4-12.3) fl Neut % (Auto) 68.0 H (34.0-67.9) % Lymph % (Auto) 14.7 L (21.8-53.1) % [place] % (Auto) 14.7 H (5.3-12.2) % Eos % (Auto) 0.9 (0.8-7.0) Baso % (Auto) 0.6 (0.1-1.2) % Neut # (Auto) 4.40 (1.78-5.38) K/mm3 Lymph # (Auto) 0.95 L (1.32-3.57) K/mm3 [place] # (Auto) 0.95 H (0.30-0.82) K/mm3 Eos # (Auto) 0.06 (0.04-0.54) K/mm3 Baso # (Auto) 0.04 (0.01-0.08) K/mm3 Manual Slide Review Abnormal smear Sodium 134 L (136-145) mEq/L Potassium 3.6 (3.5-5.1) mEq/L Chloride 99 (98-107) mEq/L Carbon Dioxide 23 (21-32) mEq/L Anion Gap 15.6 H (5-15) BUN 4 L (7-18) mg/dL Creatinine 0.6 L (0.7-1.3) mg/dL Est Cr Clr Drug Dosing 171.36 mL/min Estimated GFR (MDRD) > 60 (>60) mL/min BUN/Creatinine Ratio 6.7 L (14-18) Glucose 85 (74-106) mg/dL Calcium 8.2 L (8.5-10.1) mg/dL Phosphorus 2.6 (2.6-4.7) mg/dL Magnesium 2.1 (1.8-2.4) mg/dl Total Bilirubin 11.6 H (0.2-1.0) mg/dL AST 225 H (15-37) U/L ALT 120 H (16-63) U/L Alkaline Phosphatase 368 H (46-116) U/L Total Protein 5.7 L (6.4-8.2) g/dl Albumin 2.2 L (3.4-5.0) g/dl Globulin 3.5 gm/dL Albumin/Globulin Ratio 0.6 L (1-2) Med Orders - Current: Current Medications Fluoxetine HCl (Prozac) 20 mg PO DAILY [facility] Last Admin: 01/19/20 09:43 Dose: 20 mg Folic Acid (Folic Acid) 1 mg PO DAILY [facility] Last Admin: 01/19/20 09:43 Dose: 1 mg Potassium Chloride/Dextrose/Sod Cl (D5 1/2 Ns W/ 20 Meq/L Kcl) 1,000 mls @ 75 mls/hr IV ASDIRECTED [facility] Last Admin: 01/18/20 20:43 Dose: 75 mls/hr Albumin Human (Flexbumin 25%) 12.5 gm in 50 mls @ 100 mls/hr IV ONETIME ONE Stop: 01/19/20 11:00 Albumin Human (Flexbumin 25%) 12.5 gm in 50 mls @ 100 mls/hr IV ONETIME ONE Stop: 01/19/20 11:29 Lorazepam (Ativan) 1 - 3 mg IV ASDIRECTED [facility]; Protocol Last Admin: 01/15/20 03:15 Dose: 2 mg Lorazepam (Ativan) 1 - 3 mg PO ASDIRECTED [facility]; Protocol Last Admin: 01/15/20 01:07 Dose: 2 mg Nicotine (Habitrol) 14 mg TRDERM DAILY [facility] Last Admin: 01/19/20 09:44 Dose: 14 mg Ondansetron HCl (Zofran Odt) 4 mg PO Q6H PRN PRN Reason: nausea, able to take PO Ondansetron HCl (Zofran) 4 mg IV Q6H PRN PRN Reason: Nausea/Vomiting Polymyxin/Trimethoprim Sulfate (Polytrim Ophth Soln) 1 ml EYEBOTH Q4HWA [facility] Last Admin: 01/19/20 09:48 Dose: 1 drop Sodium Phosphate (Neutra-Phos) 250 mg PO QID [facility] Last Admin: 01/19/20 09:44 Dose: 250 mg Thiamine HCl (Vitamin B-1) 100 mg PO DAILY [facility] Last Admin: 01/19/20 09:44 Dose: 100 mg Ursodiol (Larisa 250) 250 mg PO TIDMEALS [facility] Last Admin: 01/19/20 06:50 Dose: 250 mg Discontinued Medications Acetaminophen (Tylenol) 650 mg PO NOW ONE Stop: 01/12/20 16:52 Last Admin: 01/12/20 17:54 Dose: Not Given Cyanocobalamin (Vitamin B12) 1,000 mcg IM ONETIME ONE Stop: 01/12/20 15:26 Last Admin: 01/12/20 15:52 Dose: 1,000 mcg Folic Acid (Folic Acid) 1 mg IV ONETIME ONE Stop: 01/13/20 15:26 Folic Acid (Folic Acid) 1 mg IV DAILY [facility] Last Admin: 01/14/20 09:44 Dose: 1 mg Haloperidol Lactate (Haldol) 5 mg IM ONETIME ONE Stop: 01/15/20 02:16 Last Admin: 01/15/20 02:23 Dose: 5 mg Haloperidol Lactate (Haldol) Confirm Administered Dose 5 mg .ROUTE .STK-MED ONE Stop: 01/15/20 02:19 Last Admin: 01/15/20 02:24 Dose: Not Given Lactated Ringer's (Ringers, Lactated) 1,000 mls @ 999 mls/hr IV .BOLUS ONE Stop: 01/12/20 16:25 Last Admin: 01/12/20 15:42 Dose: 999 mls/hr Lactated Ringer's (Ringers, Lactated) 1,000 mls @ 999 mls/hr IV .BOLUS ONE Stop: 01/12/20 16:27 Last Admin: 01/12/20 16:44 Dose: 999 mls/hr Potassium Chloride/Sodium Chloride (Normal Saline With 20 Meq Kcl) 1,000 mls @ 150 mls/hr IV ASDIRECTED [facility] Last Admin: 01/12/20 17:34 Dose: 150 mls/hr Sodium Chloride (Normal Saline) 1,000 mls @ 150 mls/hr IV ASDIRECTED [facility] Last Admin: 01/13/20 15:01 Dose: 150 mls/hr Lactated Ringer's (Ringers, Lactated) 1,000 mls @ 250 mls/hr IV ASDIRECTED [facility] Magnesium Sulfate 4 gm/ Premix 50 mls @ 12.5 mls/hr IV ONETIME ONE Stop: 01/12/20 22:52 Last Admin: 01/12/20 20:32 Dose: 12.5 mls/hr Potassium Chloride 10 meq/ (Premix) 100 mls @ 100 mls/hr IV Q1H [facility] Stop: 01/12/20 20:59 Last Admin: 01/12/20 22:04 Dose: 100 mls/hr Sodium Chloride (Normal Saline) 100 mls @ 60 mls/hr IV ASDIRECTED [facility] Stop: 01/13/20 16:00 Last Admin: 01/13/20 11:49 Dose: 60 mls/hr Potassium Chloride 10 meq/ (Premix) 100 mls @ 100 mls/hr IV Q1H [facility] Stop: 01/13/20 22:44 Last Admin: 01/13/20 23:39 Dose: 100 mls/hr Potassium Chloride/Sodium Chloride (Normal Saline With 40 Meq Kcl) 1,000 mls @ 150 mls/hr IV ASDIRECTED [facility] Last Admin: 01/15/20 01:08 Dose: 150 mls/hr Sodium Phosphate 60 mmole/ (Sodium Chloride) 270 mls @ 67 mls/hr IV ONETIME ONE Stop: 01/13/20 23:16 Last Admin: 01/13/20 20:09 Dose: 67 mls/hr Magnesium Sulfate 2 gm/ Premix 50 mls @ 25 mls/hr IV ONETIME ONE Stop: 01/15/20 10:29 Last Admin: 01/15/20 09:01 Dose: 25 mls/hr Sodium Chloride (Normal Saline) 1,000 mls @ 150 mls/hr IV ASDIRECTED [facility] Stop: 01/15/20 15:00 Last Admin: 01/15/20 08:30 Dose: 150 mls/hr Dextrose/Sodium Chloride (Dextrose 5%-Normal Saline) 1,000 mls @ 125 mls/hr IV ASDIRECTED [facility] Last Admin: 01/16/20 04:52 Dose: 125 mls/hr Sodium Phosphate 30 mmole/ (Sodium Chloride) 260 mls @ 130 mls/hr IV Q2H [facility] Stop: 01/15/20 14:59 Last Admin: 01/15/20 13:04 Dose: 130 mls/hr Magnesium Sulfate 2 gm/ Premix 50 mls @ 25 mls/hr IV Q1H [facility] Stop: 01/15/20 22:29 Last Admin: 01/15/20 22:03 Dose: 25 mls/hr Potassium Phosphate 15 mmole/ (Sodium Chloride) 255 mls @ 85 mls/hr IV ASDIRECTED [facility] Stop: 01/15/20 23:29 Sodium Phosphate 30 mmole/ (Sodium Chloride) 260 mls @ 86.667 mls/hr IV ONETIME ONE Stop: 01/16/20 00:29 Last Admin: 01/15/20 21:35 Dose: 86.667 mls/hr Potassium Phosphate 30 mmole/ (Sodium Chloride) 510 mls @ 102 mls/hr IV ONETIME ONE Stop: 01/16/20 16:29 Last Admin: 01/16/20 11:06 Dose: 102 mls/hr Potassium Phosphate 30 mmole/ (Sodium Chloride) 510 mls @ 102 mls/hr IV ONETIME ONE Stop: 01/17/20 13:59 Last Admin: 01/17/20 09:00 Dose: 102 mls/hr Magnesium Sulfate 2 gm/ Premix 50 mls @ 25 mls/hr IV ONETIME ONE Stop: 01/18/20 19:50 Last Admin: 01/18/20 18:14 Dose: 25 mls/hr Iopamidol (Isovue-370 (76%)) 100 ml IVPUSH ONETIME ONE Stop: 01/13/20 11:45 Last Admin: 01/13/20 11:49 Dose: 100 ml Lactulose (Cephulac) 20 gm PO ONETIME ONE Stop: 01/19/20 10:16 Lorazepam (Ativan) 0 mg PO ASDIRECTED [facility]; Protocol Lorazepam (Ativan) 0 mg IV ASDIRECTED [facility]; Protocol Lorazepam (Ativan) 1 mg PO ONETIME ONE Stop: 01/13/20 14:30 Last Admin: 01/13/20 15:00 Dose: 1 mg Ursodiol 250 Mg Tab 0 each PO TIDMEALS [facility] Last Admin: 01/18/20 06:43 Dose: 1 each Ondansetron HCl (Zofran) 4 mg IVPUSH ONETIME ONE Stop: 01/12/20 15:26 Last Admin: 01/12/20 15:42 Dose: 4 mg Potassium Chloride (Klor-Con M20) 20 meq PO ONETIME ONE Stop: 01/15/20 21:08 Last Admin: 01/15/20 21:34 Dose: 20 meq Quetiapine Fumarate (Seroquel) 25 mg PO BEDTIME [facility] Last Admin: 01/14/20 21:29 Dose: 25 mg Sodium Chloride (Saline Flush) 10 ml FLUSH ONETIME ONE Stop: 01/13/20 11:45 Last Admin: 01/13/20 11:49 Dose: 10 ml Topiramate (Topamax) 25 mg PO BID [facility] Last Admin: 01/14/20 21:29 Dose: 25 mg Ursodiol (Larisa 250) 500 mg .ROUTE .STK-MED ONE Stop: 01/17/20 17:01 - Exam General: Alert, Oriented, Cooperative HEENT: Pupils Equal, Pupils Reactive, Other (His pupils appears jaundiced) Neck: Supple, Trachea Midline, No JVD Lungs: Clear to Auscultation, Normal Respiratory Effort Cardiovascular: Regular Rate, Regular Rhythm GI/Abdominal Exam: Normal Bowel Sounds, Soft, Non-Tender Back Exam: Normal Inspection, Full Range of Motion Extremities: Pedal Edema (Leg swellings noted bilaterally) Skin: Warm, Dry, Intact Neurological: No New Focal Deficit, Normal Speech, Normal Tone Psy/Mental Status: Alert, Normal Affect, Normal Mood Sepsis Event Note - Evaluation Sepsis Screening Result: No Definite Risk - Focused Exam Vital Signs: Vital Signs Temp Temp Pulse Pulse Resp BP BP 01/19/20 09:26 98.0 F 100 100 18 106/72 92/71 01/19/20 04:07 97.5 F 101 H 16 120/87 Pulse Ox 01/19/20 09:26 98 01/19/20 04:07 99 Date Exam was Performed: 01/19/20 Time Exam was Performed: 10:36 - Problem List Review Problem List Initiated/Reviewed/Updated: Yes - My Orders Last 24 Hours: My Active Orders 01/19/20 10:31 Albumin 25% 50 ML IVPB Over 30 Min Albumin 25% [Flexbumin 25%] 12.5 gm in 50 ml IV ONETIME 01/19/20 10:33 Albumin 25% 50 ML IVPB Over 30 Min Albumin 25% [Flexbumin 25%] 12.5 gm in 50 ml IV ONETIME 01/19/20 10:35 Potassium Chloride [Klor-Con M20] 40 meq PO ONETIME ONE 01/20/20 05:11 AMMONIA VENOUS [CHEM] Routine CBC WITH AUTO DIFF [HEME] AM CMP [COMPREHENSIVE METABOLIC PN,CMP] [CHEM] AM LIPASE [CHEM] Routine MAGNESIUM (PHARM SOLN) [CHEM] DAILY PHOSPHORUS [CHEM] AM 01/21/20 05:11 CMP [COMPREHENSIVE METABOLIC PN,CMP] [CHEM] AM 01/22/20 05:11 CMP [COMPREHENSIVE METABOLIC PN,CMP] [CHEM] AM - Assessment Assessment:: Assessment and plan: liver cirrhosis :, The patient's liver enzymes still appears to be modestly elevated, AST/ALT 527/291, 225/120 as compared to 242/129 yesterday, total bilirubin 11.6 as compared to 11.3 yesterday. Still appears jaundiced though jaundice appears to be improving. Plan is to check the patient's ammonia level tomorrow morning in the meantime, continue gentle hydration with D5 half-normal saline KCl at rate of 75 mL/h the patient will be given lactulose grams x1 dose now trying to improve patient's hyperbilirubinemia. Meanwhile continue ursodiol 250 mg p.o. 3 times daily patient will also be on propanolol 5 mg p.o. twice daily hold for systolic blood pressure less than 90 heart rate less than 60. To encourage physical therapy. Acute on Chronic pancreatitis: has been tolerating meals without any acute complaints. Will check the patient's lipase, continue gentle hydration as described above. Hypoalbuminemia: The patient will be given 2, 25 g of albumin given the patient 's albumin today is 2.2 continue to monitor and replace. History of Alcohol abuse: Patient will continue on thiamine multivitamin and folic acid so far no signs of alcohol withdrawals. Debility/deconditioning: The patient still appears weak, recommendation is for patient to continue with physical therapy for strengthening. Electrolyte imbalance: Patient's potassium and magnesium will be closely monitored today, we will give the patient potassium 40 mEq p.o. x1 dose. Depression: Continue Prozac 20 mg p.o. daily. Nausea: Zofran 4 mg as needed nausea. Nicotine dependence: Patient will continue on nicotine patch to be applied daily , will dose from 14 to 21 mg. Left leg syndrome: Patient will be started on Requip 1 mg nightly. Insomnia: Trazodone 100 mg p.o. nightly. - Plan Plan:: DAY OF ADMISSION - Ethanol level zero on admission + binge alcohol drinking pattern - Ad[facility] with [facility] - No need for steroid use due to Maddrey score of 8 - Negative Tylenol and salicylate level - Positive UDS for THC - Normal coagulation studies, no need for vitamin K - Normal kidney function - Smoked 0.5ppd - Depression - Worsening depression as per patient - Previously treated with paroxetine, he discontinued due to sexual dysfunction - Denies any suicidal or homicidal ideation - Denies any previous psychiatric admissions DAY 1 - Evaluated by psychiatry - Recommended initiating Seroquel, Topamax, Prozac and Ativan as needed - Outpatient rehabilitation - Complete abdominal US with mas in pancreatic head recommending triple phase CT - Electrolytes continue to be abnormal, will replace - Liver function tests still significantly elevate but trending down - Patient remains NPO - Afebrile - 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 Case discussed with [facility] in [place], [place]--> States that the findings on pancreatic head appear to be same density of the rest of the pancreas and does not appear to be a mas There is some stranding around the pancreas which represents acute edema and stated patient likely is having acute pancreatitis without pain Recommended outpatient endoscopic ultrasound 4 weeks after resolution of current clinical picture DAY 2 - LFTs trending down - Pancreatic enzymes trending down - No pain - Is hungry - Afebrile - CIWA negative Day 3 * Increasing confusion and hallucination overnight * Required significant Ativan and 5 mg of Haldol due to hallucination, confusion , and concern for self-harm. * Transfer to ICU for close monitoring and one-on-one care. * Lipase decreasin down to 854 * Amylase stable at 119 * Bilirubin increased to 14, liver enzymes decreased from admission * PT and INR slightly elevated at 13.1 and 1.22 respectively * Patient n.p.o. but will advance diet as tolerated once his mental status improves * Ammonia level is normal at 28. This makes it less likely to be hepatic encephalopathy. * Phosphorus 0.9 * Alcoholic encephalopathy * Left eye matted and conjunctiva is erythematous Day 4 * Significantly improved mentation today. Did not receive any more Ativan yesterday afternoon or evening. * Patient denies having any abdominal pain. * Elevated lipase likely secondary to either the pancreatic mass or possibly chronic pancreatitis. * Start a low residual low-fat diet today. * Total bilirubin 12.6, direct 10.6, GGT 1519, AST 335, ALT 144, alkaline phosphatase 368, * Phosphorus 2.1 and potassium 3.5 Day 5 * Total bilirubin 13.0, direct 11.1, GGT 1560, AST 304, ALT 146, alkaline phosphatase 414 * NPO now until after MRCP * Contacted [facility] one-call - discussed patient with GI. Will order MRCP at their recommendation. * Repeat labs today * Start daily PO phosphorous * Phosphorous 2.2 Day 6 * Feeling better today and stronger * PT/OT recommending home independent * Labs improving: INR is now 1.8, direct bilirubin 9.8, GGT 1212, AST 242, ALT 129, alk phos 369, lipase is 801, albumin 2.1 * Magnesium 1.7 - supplement * Ambulate * Monitor pedal edema - may require albumin and lasix tomorrow * MRCP negative for any obstruction. Pancreatic mass not visualized Acute alcoholic hepatitis Alcohol abuse, binge pattern Hepatomegaly Pancreatitis - Repeat labs in AM - Thiamine and folic acid supplementation - [facility] protocol - Viral hepatitis panel, negative - Low fat, low fiber diet - Awaiting results of MRCP Hypokalemia -resolved Hypophosphatemia - resolved Hyponatremia - Stable Hypomagnesemia -Supplement magnesium now -Continue daily phosphorous supplementation Current every day smoker - Nicotine patch 14mg Depression - Thiamine, folic acid - Stop Seroquel. Patient had significant confusion last night and Seroquel could exacerbate that. - Stop Topamax. Also stopped Topamax secondary to possibility of worsening confusion. - Start Prozac - Will need psychiatry follow-up Hypoalbuminemia Weight loss - Dietary consult Conjunctivitis, left -Warm compresses 3 times daily -Polytrim eyedrops 1 drop every 4 hours while awake PROPHYLAXIS DVT- compression stockings GI- pantoprazole CODE STATUS: FULL CODE DISPOSITION: Patient will be admitted for supportive care and monitorization of liver function. 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 Abnormal pancreas suggesting the possibility of chronic pancreatitis. Questionable mass within the mid pancreas measuring 2.2 cm. Three-phase contrast-enhanced CT of the pancreas is recommended to further evaluate. 2. Sludge within the gallbladder. 3. Fatty infiltration within the liver with mild hepatomegaly. CT of the abdomen and pelvis with and without contrast: 1. Findings suspicious for nonspecific colitis as described above. 2. Focal area of poor enhancement within the head and uncinate process of the pancreas. This could represent a focal area of pancreatitis as well as a small mass which occurs near the ampulla of Vater. Masses felt more likely. Recommend referral to [facility] for opinion whether biopsy or ERCP can be performed. This finding would be difficult to biopsy by percutaneous technique. Also, please correlate if patient has elevated amylase and lipase to indicate pancreatitis. 3. Diffuse fatty infiltration within the liver with hepatomegaly. MRCP: 1. Small amount of ascites around the liver and spleen and pancreas are seen. These findings raise the question of pancreatitis. Previous mass within the pancreas not seen on current exam although no contrast was utilized to confirm. Previous mass may represent change from pancreatitis rather than actual pancreatic mass. Follow-up contrast study by CT recommended in 6 months to confirm disappearance. 2. Fatty infiltration within the liver.
[2020-01-19] MEDS: Nicotine 21 MG/24 Hr Patch TRDERM SCH (11:33)
[2020-01-19] MEDS: D5 1/2 NS w/ 20 mEq/L KCl 1,000 ML IV SCH (12:36)
[2020-01-19] MEDS ORDERED: rOPINIRole 1 MG Tab PO SCH (21:00)
[2020-01-19] MEDS: Propranolol 10 MG Tab PO SCH (21:36)
[2020-01-19] MEDS: traZODone 50 MG Tab PO SCH (21:36)
[2020-01-20] MEDS: D5 1/2 NS w/ 20 mEq/L KCl 1,000 ML IV SCH ×2 (01:28→16:50)
[2020-01-20] MEDS: URSODIOL 250 MG TAB PO SCH ×3 (06:45→17:12)
[2020-01-20] MEDS: Polymyxin B/Trimethoprim 10 ML Bottle EYEBOTH SCH ×5 (06:45→21:00)
[2020-01-20] MEDS ORDERED: Potassium Phosphates 30 MMOLE in Sodium Chloride 0.9% 500 ML IV SCH (08:15)
[2020-01-20] MEDS ORDERED: Lactulose Soln 10 GM/15 ML 30 ML UD Cup PO SCH (09:00)
[2020-01-20] MEDS: Nicotine 21 MG/24 Hr Patch TRDERM SCH ×2 (09:00→11:20)
[2020-01-20] MEDS: Phosphorus #1 250 MG Tab PO SCH ×4 (09:09→20:54)
[2020-01-20] MEDS: Folic Acid 1 MG Tab PO SCH (09:10)
[2020-01-20] MEDS: Propranolol 10 MG Tab PO SCH ×2 (09:10→20:53)
[2020-01-20] MEDS: Thiamine 100 MG Tab PO SCH (09:10)
[2020-01-20] MEDS: FLUoxetine 20 MG Cap PO SCH (09:10)
--- NOTE | 2020-01-20 12:30 | PCM.PN ---
- General Info Date of Service: 01/20/20 - Review of Systems Systems Review Comment:: The patient was seen and examined by me, discussed with Dr. Soliman. At time of exam, patient resting in bed. Today, patient reports no abdominal pain, overnight patient has had multiple bowel movements. This morning, jaundice though still present appears to be improving. No fevers no chills. Patient eating and drinking appropriately. No reports of chest pain or palpitations. Nursing staff did not report any acute concerns with the patient overnight. - Patient Data Vitals - Most Recent: Last Vital Signs Temp 98.1 F 01/20/20 08:55 Pulse 103 H 01/20/20 09:10 Resp 13 01/20/20 08:55 BP 114/63 01/20/20 09:10 Pulse Ox 97 01/20/20 08:55 Weight - Most Recent: 159 lb I&O - Last 24 Hours: Intake & Output 01/19/20 01/20/20 01/20/20 22:59 06:59 14:59 Intake Total 2925 2004 Output Total 5 2850 Balance 800 -845 Lab Results Last 24 Hours: Laboratory Results - last 24 hr 01/20/20 01/20/20 01/20/20 Range/Units 05:41 05:41 05:41 WBC 6.67 (4.23-9.07) K/mm3 RBC 2.62 L (4.63-6.08) M/mm3 Hgb 9.8 L (13.7-17.5) gm/dl Hct 29.8 L (40.1-51.0) % MCV 113.7 H D (79.0-92.2) fl MCH 37.4 H (25.7-32.2) pg MCHC 32.9 (32.2-35.5) g/dl RDW Std Deviation 63.8 H (35.1-43.9) fL Plt Count 134 L (163-337) K/mm3 MPV 11.9 (9.4-12.3) fl Neut % (Auto) 60.4 (34.0-67.9) % Lymph % (Auto) 17.8 L (21.8-53.1) % Sanborn % (Auto) 19.0 H (5.3-12.2) % Eos % (Auto) 1.2 (0.8-7.0) Baso % (Auto) 0.6 (0.1-1.2) % Neut # (Auto) 4.02 (1.78-5.38) K/mm3 Lymph # (Auto) 1.19 L (1.32-3.57) K/mm3 Sanborn # (Auto) 1.27 H (0.30-0.82) K/mm3 Eos # (Auto) 0.08 (0.04-0.54) K/mm3 Baso # (Auto) 0.04 (0.01-0.08) K/mm3 Manual Slide Review Abnormal smear Sodium 134 L (136-145) mEq/L Potassium 3.9 (3.5-5.1) mEq/L Chloride 99 (98-107) mEq/L Carbon Dioxide 22 (21-32) mEq/L Anion Gap 16.9 H (5-15) BUN 5 L (7-18) mg/dL Creatinine 0.5 L (0.7-1.3) mg/dL Est Cr Clr Drug Dosing 204.34 mL/min Estimated GFR (MDRD) > 60 (>60) mL/min BUN/Creatinine Ratio 10.0 L (14-18) Glucose 101 (74-106) mg/dL Calcium 8.6 (8.5-10.1) mg/dL Phosphorus 2.4 L (2.6-4.7) mg/dL Total Bilirubin 10.8 H (0.2-1.0) mg/dL AST 177 H (15-37) U/L ALT 97 H (16-63) U/L Alkaline Phosphatase 320 H (46-116) U/L Ammonia 36 H (11-32) umol/L Total Protein 5.6 L (6.4-8.2) g/dl Albumin 2.3 L (3.4-5.0) g/dl Globulin 3.3 gm/dL Albumin/Globulin Ratio 0.7 L (1-2) Lipase 815 H (73-393) U/L Med Orders - Current: Current Medications Fluoxetine HCl (Prozac) 20 mg PO DAILY [facility] Last Admin: 01/20/20 09:10 Dose: 20 mg Folic Acid (Folic Acid) 1 mg PO DAILY [facility] Last Admin: 01/20/20 09:10 Dose: 1 mg Gabapentin (Neurontin) 200 mg PO BEDTIME [facility] Potassium Chloride/Dextrose/Sod Cl (D5 1/2 Ns W/ 20 Meq/L Kcl) 1,000 mls @ 75 mls/hr IV ASDIRECTED [facility] Last Admin: 01/20/20 01:28 Dose: 75 mls/hr Potassium Phosphate 30 mmole/ (Sodium Chloride) 510 mls @ 102 mls/hr IV ASDIRECTED [facility] Stop: 01/20/20 13:14 Last Admin: 01/20/20 11:06 Dose: 102 mls/hr Lactulose (Cephulac) 20 gm PO DAILY [facility] Lorazepam (Ativan) 1 - 3 mg IV ASDIRECTED [facility]; Protocol Last Admin: 01/15/20 03:15 Dose: 2 mg Lorazepam (Ativan) 1 - 3 mg PO ASDIRECTED [facility]; Protocol Last Admin: 01/15/20 01:07 Dose: 2 mg Nicotine (Habitrol) 21 mg TRDERM DAILY [facility] Last Admin: 01/20/20 11:20 Dose: 21 mg Ondansetron HCl (Zofran Odt) 4 mg PO Q6H PRN PRN Reason: nausea, able to take PO Ondansetron HCl (Zofran) 4 mg IV Q6H PRN PRN Reason: Nausea/Vomiting Polymyxin/Trimethoprim Sulfate (Polytrim Ophth Soln) 1 ml EYEBOTH Q4HWA [facility] Last Admin: 01/20/20 09:00 Dose: 1 drop Propranolol HCl (Inderal) 5 mg PO BID [facility] Last Admin: 01/20/20 09:10 Dose: 5 mg Sodium Phosphate (Neutra-Phos) 250 mg PO QID [facility] Last Admin: 01/20/20 12:02 Dose: 250 mg Thiamine HCl (Vitamin B-1) 100 mg PO DAILY [facility] Last Admin: 01/20/20 09:10 Dose: 100 mg Trazodone HCl (Trazodone) 100 mg PO BEDTIME [facility] Last Admin: 01/19/20 21:36 Dose: 100 mg Ursodiol (Larisa 250) 250 mg PO TIDMEALS [facility] Last Admin: 01/20/20 12:02 Dose: 250 mg Discontinued Medications Acetaminophen (Tylenol) 650 mg PO NOW ONE Stop: 01/12/20 16:52 Last Admin: 01/12/20 17:54 Dose: Not Given Cyanocobalamin (Vitamin B12) 1,000 mcg IM ONETIME ONE Stop: 01/12/20 15:26 Last Admin: 01/12/20 15:52 Dose: 1,000 mcg Folic Acid (Folic Acid) 1 mg IV ONETIME ONE Stop: 01/13/20 15:26 Folic Acid (Folic Acid) 1 mg IV DAILY [facility] Last Admin: 01/14/20 09:44 Dose: 1 mg Haloperidol Lactate (Haldol) 5 mg IM ONETIME ONE Stop: 01/15/20 02:16 Last Admin: 01/15/20 02:23 Dose: 5 mg Haloperidol Lactate (Haldol) Confirm Administered Dose 5 mg .ROUTE .STK-MED ONE Stop: 01/15/20 02:19 Last Admin: 01/15/20 02:24 Dose: Not Given Lactated Ringer's (Ringers, Lactated) 1,000 mls @ 999 mls/hr IV .BOLUS ONE Stop: 01/12/20 16:25 Last Admin: 01/12/20 15:42 Dose: 999 mls/hr Lactated Ringer's (Ringers, Lactated) 1,000 mls @ 999 mls/hr IV .BOLUS ONE Stop: 01/12/20 16:27 Last Admin: 01/12/20 16:44 Dose: 999 mls/hr Potassium Chloride/Sodium Chloride (Normal Saline With 20 Meq Kcl) 1,000 mls @ 150 mls/hr IV ASDIRECTED [facility] Last Admin: 01/12/20 17:34 Dose: 150 mls/hr Sodium Chloride (Normal Saline) 1,000 mls @ 150 mls/hr IV ASDIRECTED [facility] Last Admin: 01/13/20 15:01 Dose: 150 mls/hr Lactated Ringer's (Ringers, Lactated) 1,000 mls @ 250 mls/hr IV ASDIRECTED [facility] Magnesium Sulfate 4 gm/ Premix 50 mls @ 12.5 mls/hr IV ONETIME ONE Stop: 01/12/20 22:52 Last Admin: 01/12/20 20:32 Dose: 12.5 mls/hr Potassium Chloride 10 meq/ (Premix) 100 mls @ 100 mls/hr IV Q1H [facility] Stop: 01/12/20 20:59 Last Admin: 01/12/20 22:04 Dose: 100 mls/hr Sodium Chloride (Normal Saline) 100 mls @ 60 mls/hr IV ASDIRECTED [facility] Stop: 01/13/20 16:00 Last Admin: 01/13/20 11:49 Dose: 60 mls/hr Potassium Chloride 10 meq/ (Premix) 100 mls @ 100 mls/hr IV Q1H [facility] Stop: 01/13/20 22:44 Last Admin: 01/13/20 23:39 Dose: 100 mls/hr Potassium Chloride/Sodium Chloride (Normal Saline With 40 Meq Kcl) 1,000 mls @ 150 mls/hr IV ASDIRECTED [facility] Last Admin: 01/15/20 01:08 Dose: 150 mls/hr Sodium Phosphate 60 mmole/ (Sodium Chloride) 270 mls @ 67 mls/hr IV ONETIME ONE Stop: 01/13/20 23:16 Last Admin: 01/13/20 20:09 Dose: 67 mls/hr Magnesium Sulfate 2 gm/ Premix 50 mls @ 25 mls/hr IV ONETIME ONE Stop: 01/15/20 10:29 Last Admin: 01/15/20 09:01 Dose: 25 mls/hr Sodium Chloride (Normal Saline) 1,000 mls @ 150 mls/hr IV ASDIRECTED [facility] Stop: 01/15/20 15:00 Last Admin: 01/15/20 08:30 Dose: 150 mls/hr Dextrose/Sodium Chloride (Dextrose 5%-Normal Saline) 1,000 mls @ 125 mls/hr IV ASDIRECTED [facility] Last Admin: 01/16/20 04:52 Dose: 125 mls/hr Sodium Phosphate 30 mmole/ (Sodium Chloride) 260 mls @ 130 mls/hr IV Q2H [facility] Stop: 01/15/20 14:59 Last Admin: 01/15/20 13:04 Dose: 130 mls/hr Magnesium Sulfate 2 gm/ Premix 50 mls @ 25 mls/hr IV Q1H [facility] Stop: 01/15/20 22:29 Last Admin: 01/15/20 22:03 Dose: 25 mls/hr Potassium Phosphate 15 mmole/ (Sodium Chloride) 255 mls @ 85 mls/hr IV ASDIRECTED [facility] Stop: 01/15/20 23:29 Sodium Phosphate 30 mmole/ (Sodium Chloride) 260 mls @ 86.667 mls/hr IV ONETIME ONE Stop: 01/16/20 00:29 Last Admin: 01/15/20 21:35 Dose: 86.667 mls/hr Potassium Phosphate 30 mmole/ (Sodium Chloride) 510 mls @ 102 mls/hr IV ONETIME ONE Stop: 01/16/20 16:29 Last Admin: 01/16/20 11:06 Dose: 102 mls/hr Potassium Phosphate 30 mmole/ (Sodium Chloride) 510 mls @ 102 mls/hr IV ONETIME ONE Stop: 01/17/20 13:59 Last Admin: 01/17/20 09:00 Dose: 102 mls/hr Magnesium Sulfate 2 gm/ Premix 50 mls @ 25 mls/hr IV ONETIME ONE Stop: 01/18/20 19:50 Last Admin: 01/18/20 18:14 Dose: 25 mls/hr Albumin Human (Flexbumin 25%) 12.5 gm in 50 mls @ 100 mls/hr IV ONETIME ONE Stop: 01/19/20 11:00 Last Admin: 01/19/20 11:32 Dose: 100 mls/hr Albumin Human (Flexbumin 25%) 12.5 gm in 50 mls @ 100 mls/hr IV ONETIME ONE Stop: 01/19/20 11:29 Last Admin: 01/19/20 12:12 Dose: 100 mls/hr Iopamidol (Isovue-370 (76%)) 100 ml IVPUSH ONETIME ONE Stop: 01/13/20 11:45 Last Admin: 01/13/20 11:49 Dose: 100 ml Lactulose (Cephulac) 20 gm PO ONETIME ONE Stop: 01/19/20 10:16 Last Admin: 01/19/20 11:32 Dose: 20 gm Lactulose (Cephulac) 20 gm PO BID [facility] Last Admin: 01/20/20 09:30 Dose: Not Given Lorazepam (Ativan) 0 mg PO ASDIRECTED [facility]; Protocol Lorazepam (Ativan) 0 mg IV ASDIRECTED [facility]; Protocol Lorazepam (Ativan) 1 mg PO ONETIME ONE Stop: 01/13/20 14:30 Last Admin: 01/13/20 15:00 Dose: 1 mg Nicotine (Habitrol) 14 mg TRDERM DAILY [facility] Last Admin: 01/19/20 09:44 Dose: 14 mg Ursodiol 250 Mg Tab 0 each PO TIDMEALS [facility] Last Admin: 01/18/20 06:43 Dose: 1 each Ondansetron HCl (Zofran) 4 mg IVPUSH ONETIME ONE Stop: 01/12/20 15:26 Last Admin: 01/12/20 15:42 Dose: 4 mg Potassium Chloride (Klor-Con M20) 20 meq PO ONETIME ONE Stop: 01/15/20 21:08 Last Admin: 01/15/20 21:34 Dose: 20 meq Potassium Chloride (Klor-Con M20) 40 meq PO ONETIME ONE Stop: 01/19/20 10:36 Last Admin: 01/19/20 11:33 Dose: 40 meq Quetiapine Fumarate (Seroquel) 25 mg PO BEDTIME [facility] Last Admin: 01/14/20 21:29 Dose: 25 mg Ropinirole HCl (Requip) 1 mg PO BEDTIME [facility] Last Admin: 01/19/20 21:35 Dose: 1 mg Sodium Chloride (Saline Flush) 10 ml FLUSH ONETIME ONE Stop: 01/13/20 11:45 Last Admin: 01/13/20 11:49 Dose: 10 ml Topiramate (Topamax) 25 mg PO BID [facility] Last Admin: 01/14/20 21:29 Dose: 25 mg Ursodiol (Larisa 250) 500 mg .ROUTE .STK-MED ONE Stop: 01/17/20 17:01 - Exam General: Alert, Oriented, Cooperative, No Acute Distress HEENT: Pupils Equal, Pupils Reactive, EOMI, Scleral Icterus (But improving) Neck: Supple, Trachea Midline, No JVD Lungs: Clear to Auscultation, Normal Respiratory Effort Cardiovascular: Regular Rate, Regular Rhythm GI/Abdominal Exam: Normal Bowel Sounds, Soft, No Distention, Hepatomegaly Back Exam: Normal Inspection, Full Range of Motion Extremities: Other (Trace leg swelling is noted bilaterally but improving) Skin: Warm, Dry, Intact Neurological: No New Focal Deficit Psy/Mental Status: Alert, Normal Affect, Normal Mood Sepsis Event Note - Evaluation Sepsis Screening Result: No Definite Risk - Focused Exam Vital Signs: Vital Signs Temp Pulse Resp BP Pulse Ox 01/20/20 09:10 103 H 114/63 01/20/20 08:55 98.1 F 103 H 13 114/63 97 01/20/20 03:11 97.5 F 96 18 113/82 100 Date Exam was Performed: 01/20/20 Time Exam was Performed: 12:18 - Problem List Review Problem List Initiated/Reviewed/Updated: Yes - My Orders Last 24 Hours: My Active Orders 01/19/20 21:00 Propranolol [Inderal] 5 mg PO BID traZODone 100 mg PO BEDTIME 01/20/20 08:15 Potassium Phosphates 30 mmole Sodium Chloride 0.9% [Normal Saline] 500 ml IV ASDIRECTED 01/20/20 13:00 Lactulose [Cephulac] 20 gm PO DAILY 01/20/20 21:00 Gabapentin [Neurontin] 200 mg PO BEDTIME 01/21/20 05:11 CBC WITH AUTO DIFF [HEME] AM CMP [COMPREHENSIVE METABOLIC PN,CMP] [CHEM] AM GAMMA GLUTAMYL TRANSFERASE,GGT [CHEM] Routine MAGNESIUM (PHARM SOLN) [CHEM] DAILY 01/22/20 05:11 CMP [COMPREHENSIVE METABOLIC PN,CMP] [CHEM] AM - Assessment Assessment:: Assessment and plan: liver cirrhosis : The patient's liver enzymes still appears to be modestly elevated today compared to yesterday. AST/ALT 177/97 as compared to 225/120 yesterday, alkaline phosphatase 220 as compared to 368 yesterday. Ammonia 36 up from 10 2 days ago. Bilirubin also trending down 10.2 as compared to 11.6. We will continue the patient on lactulose 20 mg p.o. daily, continue current with D5 half-normal saline KCl at rate of 75 mL/h, tinea lactulose trying to improve patient's hyperbilirubinemia. Meanwhile continue ursodiol 250 mg p.o. 3 times daily patient will also be on propanolol 5 mg p.o. twice daily hold for systolic blood pressure less than 90 heart rate less than 60. To encourage physical therapy. Acute on Chronic pancreatitis: has been tolerating meals without any acute complaints. Lipase today 815, continue gentle hydration as described above. Hypoalbuminemia: The patient's albumin today 2.2 as compared to 2.3 yesterday after transfusion albumin. will continue to monitor. History of Alcohol abuse: Patient will continue on thiamine multivitamin and folic acid so far no signs of alcohol withdrawals. Debility/deconditioning: The patient still appears weak, recommendation is for patient to continue with physical therapy for strengthening. Electrolyte imbalance: Patient's potassium and magnesium will be closely monitored today, we will give the patient potassium 40 mEq p.o. x1 dose continue Neutra-phose. Depression: Continue Prozac 20 mg p.o. daily. Nausea: Zofran 4 mg as needed nausea. Nicotine dependence: Patient will continue on nicotine patch to be applied daily , will dose from 14 to 21 mg. Left leg syndrome/neuropathy:, Patient was started on Requip but did not report any improvement today. Will discontinue Requip start Neurontin 200 mg p.o. nightly to see if this will help with pain. Insomnia: Trazodone 100 mg p.o. nightly.
[2020-01-20] MEDS: Lactulose Soln 10 GM/15 ML 30 ML UD Cup PO SCH (12:39)
[2020-01-20] MEDS: traZODone 50 MG Tab PO SCH (20:54)
[2020-01-20] MEDS ORDERED: Gabapentin 100 MG Cap PO SCH (21:00)
[2020-01-21] MEDS: URSODIOL 250 MG TAB PO SCH ×3 (05:44→11:56)
[2020-01-21] MEDS: Polymyxin B/Trimethoprim 10 ML Bottle EYEBOTH SCH ×2 (05:44→11:20)
[2020-01-21] MEDS: D5 1/2 NS w/ 20 mEq/L KCl 1,000 ML IV SCH (05:45)
[2020-01-21 08:44] VITALS: BP 111/79; PULSE 91
[2020-01-21] MEDS: Phosphorus #1 250 MG Tab PO SCH (08:55)
[2020-01-21] MEDS: Thiamine 100 MG Tab PO SCH (08:56)
[2020-01-21] MEDS: Folic Acid 1 MG Tab PO SCH (08:56)
[2020-01-21] MEDS: Propranolol 10 MG Tab PO SCH (08:56)
[2020-01-21] MEDS: Lactulose Soln 10 GM/15 ML 30 ML UD Cup PO SCH (08:57)
[2020-01-21] MEDS: Nicotine 21 MG/24 Hr Patch TRDERM SCH (08:59)
[2020-01-21] MEDS: FLUoxetine 20 MG Cap PO SCH (09:00)
--- NOTE | 2020-01-21 10:01 | PN ---
DATE OF SERVICE: 01/19/2020 ADDENDUM: The patient was seen, examined, and discussed by me with Jeramin Brennan PA-C. Mr. Crystal condition is worrisome. The patient is eating okay. He does not report any abdominal pain or nausea, but he is still very weak and bilirubin actually came up today from 11.3 to 11.6 and the patient's alk phos still remain elevated. 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 We will continue the patient on Ursodiol 250 mg p.o. 3 times a day with meals. The patient does have 1, sometimes 2 bowel movements a day, but I think that we can try to enforce passage through the patient's bowels. For this, we will start the patient on lactulose. At least 1 dose 30 mL will be given today. We will increase dose further to achieve 4 to 6 bowel movements per day tomorrow if needed. Other than this, the patient has profound hypoalbuminemia of 2.2. He does have bilateral pedal edema watery, likely secondary to this hypoalbuminemia, and to improve perfusion and hopefully promote improvement of the patient's cholestatic hepatitis, we will transfuse 50 g of albumin today. The patient will stay in-house. For details of the patient's review of systems, interval test results, physical exam, medications, and further plan of management, please see note prepared by Jermain Brennan PA-C. [facility] /[id number]
--- NOTE | 2020-01-21 10:11 | PN ---
DATE OF SERVICE: 01/20/2020 ADDENDUM: The patient was seen, examined, and discussed by me with Jermain Brennan PA-C. The patient overall was doing well. He is eating 100% of his meals. The patient is jaundiced, but jaundice is getting better. Today, his bilirubin is down to 10.8, that is the lowest point since admission. The patient did have doses of lactulose and had several bowel movements overnight. At this moment, we will continue any other laxatives, but we will continue the patient on lactulose 30 mL p.o. daily to achieve 3 to 4 loose bowel movements daily. Ursodiol 250 mg p.o. 3 times a day with meals will be continued. We will continue physical therapy. It looks like the patient's condition is improving and we expect discharging the patient to alcoholic rehab tomorrow. Upon discharge, the patient will be recommended for Ursodiol 250 mg p.o. 3 times a day with meals for the next at least 1 month, and in 1 month, the patient needs to follow up the GI/liver specialist for further management of the patient's severe alcoholic hepatitis/possible early cirrhosis and also making decision about the need and timing for elective cholecystectomy given the fact that the patient was found to have dysfunctional gallbladder with sludge on this admission. Otherwise for details of the patient's review of systems, interval test results, physical exam, medications, and further plan of management, please see note prepared by Jermain Brennan PA-C. [facility] /[id number]
--- NOTE | 2020-01-21 11:15 | PCM.DCSUM1 ---
Discharge Summary - Hospital Course HPI Initial Comments: This is a 39-year-old male with no significant past medical history except for alcoholism who comes emergency department complaining of vomiting and weakness for approximately 2 weeks. As per patient he usually has been Sid drinking that lasts for a couple months his last binge went from June to and he drinks about 10-12 shots a day of whiskey about 4-5 times a week. Recently he started drinking in October and up to now in the same frequency. States that he has been having daily vomiting mostly of fluid content and biliary content, denies any blood. Also states that he noticed icteric sclera couple days ago as well as dark urine He also Refers some decreased appetite and weight loss for the past 2 weeks. Patient says that he has been having these binging episodes for a while now and he normally is able to taper himself off; this most recent time he started tapering himself off about 2 weeks ago Up to last night where he only had one shot of whiskey. States that he feels he has been getting super depressed mainly within the last month. He has a history of depression that started about 2 years ago after he was going broke and had to sell everything after that he's been working off and on. COVID 19 risk - Has been performing social distancing since early October - Denies any sick contacts - Denies any fevers or respiratory symptoms - No recent travel Diagnosis: Stroke: No - Discharge Data Discharge Date: 01/21/20 (Admit date: 01/15/20) Discharge Disposition: Home, Self-Care 01 Condition: Good - Referral to Home Health Primary Care Physician: Neo Keene MD - Discharge Diagnosis/Problem(s) (1) Hyperbilirubinemia SNOMED Code(s): 65541840 ICD Code: E80.6 - OTHER DISORDERS OF BILIRUBIN METABOLISM Status: Acute Priority: High (2) Alcohol abuse SNOMED Code(s): 66516145 ICD Code: F10.10 - ALCOHOL ABUSE, UNCOMPLICATED Status: Chronic Priority : High (3) Alcoholic encephalopathy SNOMED Code(s): 469376208 ICD Code: G31.2 - DEGENERATION OF NERVOUS SYSTEM DUE TO ALCOHOL; F10.20 - ALCOHOL DEPENDENCE, UNCOMPLICATED Status: Acute Priority: High (4) Alcoholic hepatitis SNOMED Code(s): 667471792 ICD Code: K70.10 - ALCOHOLIC HEPATITIS WITHOUT ASCITES Status: Acute Priority: High Qualifiers: Ascites presence: unspecified Qualified Code(s): K70.10 - Alcoholic hepatitis without ascites (5) Current every day smoker SNOMED Code(s): 497602220, 013165316 ICD Code: F17.200 - NICOTINE DEPENDENCE, UNSPECIFIED, UNCOMPLICATED Status : Chronic Priority: Medium (6) Hepatomegaly SNOMED Code(s): 58015588 ICD Code: R16.0 - HEPATOMEGALY, NOT ELSEWHERE CLASSIFIED Status: Chronic Priority: High (7) Hypoalbuminemia SNOMED Code(s): 202429781 ICD Code: E88.09 - OTH DISORDERS OF PLASMA-PROTEIN METABOLISM, NEC Status: Acute Priority: High (8) Hypokalemia SNOMED Code(s): 73798994 ICD Code: E87.6 - HYPOKALEMIA Status: Resolved Priority: High (9) Hypomagnesemia SNOMED Code(s): 936930694 ICD Code: E83.42 - HYPOMAGNESEMIA Status: Resolved Priority: High (10) Hyponatremia SNOMED Code(s): 71667308 ICD Code: E87.1 - HYPO-OSMOLALITY AND HYPONATREMIA Status: Acute Priority : High (11) Hypophosphatemia SNOMED Code(s): 4122549 ICD Code: E83.39 - OTHER DISORDERS OF PHOSPHORUS METABOLISM Status: Acute Priority: High (12) Macrocytic anemia SNOMED Code(s): 23050440 ICD Code: D53.9 - NUTRITIONAL ANEMIA, UNSPECIFIED Status: Acute Priority : High (13) Marijuana smoker SNOMED Code(s): 420857757 ICD Code: F12.90 - CANNABIS USE, UNSPECIFIED, UNCOMPLICATED Status: Chronic Priority: Medium (14) Pancreatic mass SNOMED Code(s): 888562969 ICD Code: K86.89 - OTHER SPECIFIED DISEASES OF PANCREAS Status: Acute Priority: High (15) Thrombocytopenia SNOMED Code(s): 401563233 ICD Code: D69.6 - THROMBOCYTOPENIA, UNSPECIFIED Status: Acute Priority: High (16) Anxiety SNOMED Code(s): 65998023 ICD Code: F41.9 - ANXIETY DISORDER, UNSPECIFIED Status: Chronic (17) Degenerative disc disease at L5-S1 level SNOMED Code(s): 52377284 ICD Code: M51.36 - OTHER INTERVERTEBRAL DISC DEGENERATION, LUMBAR REGION Status: Chronic Priority: Medium (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: Chronic Qualifiers: Spinal osteoarthritis complication: with radiculopathy Qualified Code(s): M47.26 - Other spondylosis with radiculopathy, lumbar region (19) Depression SNOMED Code(s): 03939523 ICD Code: F32.9 - MAJOR DEPRESSIVE DISORDER, SINGLE EPISODE, UNSPECIFIED Status: Chronic Priority: Medium Qualifiers: Depression Type: other depression Qualified Code(s): F32.89 - Other specified depressive episodes (20) Low back pain SNOMED Code(s): 555220103 ICD Code: M54.5 - LOW BACK PAIN Status: Chronic Priority: Medium Qualifiers: Chronicity: unspecified Back pain laterality: unspecified (21) CA19-9 above reference range SNOMED Code(s): 60057832163177286 ICD Code: NRN8660 - Status: Acute Priority: High (22) Pancreatitis SNOMED Code(s): 91192949 ICD Code: K85.90 - ACUTE PANCREATITIS WITHOUT NECROSIS OR INFECTION, UNSP Status: Acute Priority: High Qualifiers: Chronicity: acute Pancreatitis type: alcohol induced Acute pancreatitis complication: unspecified Qualified Code(s): K85.20 - Alcohol induced acute pancreatitis without necrosis or infection - Patient Summary/Data Consults: Consultations 01/13/20 09:30 Consult to Physician [CONS] Routine 01/13/20 14:30 Consult to Spiritual Care [CONS] Routine 01/16/20 10:04 OT Evaluation and Treatment [CONS] Routine PT Evaluation and Treatment [CONS] Routine Labs Pending at D/C: CEA and cancer antigen 15-3 still pending Recommended Follow-up Testing/Procedures: Follow-up with primary care provider within 5-7 days of discharge. -Check CBC, CMP, mag, phosphorus, ammonia, direct bilirubin, Lipase at that time. Follow-up with GI as discussed. Follow-up with outpatient psychiatry as directed. Recommend outpatient addiction counseling. Hospital Course: Carlos Alberto was admitted to the medical surgical floor for assistance with detox. A CT of the abdomen and pelvis with and without contrast was obtained showing: "1. Findings suspicious for nonspecific colitis as described above. 2. Focal area of poor enhancement within the head and uncinate process of the pancreas. This could represent a focal area of pancreatitis as well as a small mass which occurs near the ampulla of Vater. Masses felt more likely. Recommend referral to medical social consultant for opinion whether biopsy or ERCP can be performed. This finding would be difficult to biopsy by percutaneous technique. Also, please correlate if patient has elevated amylase and lipase to indicate pancreatitis. 3. Diffuse fatty infiltration within the liver with hepatomegaly. " Given IV fluids and did see psychiatry who recommended starting Prozac, Topamax, and Seroquel. Also recommended sobriety, AA visit, and pastoral guidance. He would like him to follow-up with outpatient psychiatry after discharge. He was started on thiamine and folic acid supplementation. Unfortunately after a short time on the floor patient began to have episode of delirium with hallucinations. He was then moved to the intensive care unit and Haldol and Ativan were given. Topamax and Seroquel were stopped due to concerns over an adverse reaction. His liver enzymes were noted to be very high along with his lipase and it is felt that he has acute on chronic pancreatitis as well as liver failure. Bilirubin was very high and he was started on ursodiol 250 mg 3 times daily with meals. Ammonia increased while on the floor and he was started on lactulose 20 g daily. Ultrasound abdomen: " 1. Abnormal pancreas suggesting the possibility of chronic pancreatitis. Questionable mass within the mid pancreas measuring 2.2 cm. Three-phase contrast-enhanced CT of the pancreas is recommended to further evaluate. 2. Sludge within the gallbladder. 3. Fatty infiltration within the liver with mild hepatomegaly." Was discussed multiple times with GI in [place] who recommended obtaining an MRCP to ensure no blockage. MRCP was obtained showing : "1. Small amount of ascites around the liver and spleen and pancreas are seen. These findings raise the question of pancreatitis. Previous mass within the pancreas not seen on current exam although no contrast was utilized to confirm. Previous mass may represent change from pancreatitis rather than actual pancreatic mass. Follow-up contrast study by CT recommended in 6 months to confirm disappearance. 2. Fatty infiltration within the liver." CA 19-9 lab test was obtained and was very high at 521. Continue to recommend patient obtain outpatient CT with contrast to ensure no mass. While here the patient's liver enzymes and lipase did trend downward. He never really had any abdominal pain to speak of and his nausea and vomiting did resolve. He was complaining of some diarrhea and this was secondary to lactulose administration. He will be discharged today. Recommend outpatient follow-up with GI and psychiatric services. He will be discharged on 20 mg p.o. daily Prozac, 20 g daily lactulose, 3 times daily with meals 250 mg ursodiol, 1 mg daily folic acid, and 1 mg daily thiamine supplementation. On 5 mg twice daily propranolol and this will be continued as well. He is a smoker and we discussed smoking cessation. He will be prescribed nicotine patches on discharge. He was given a list of practical resources such as ND quits and his primary care provider for assistance with smoking cessation. While here Carlos Alberto was noted to have bilateral conjunctivitis. He was started on Polytrim eyedrops. These will be continued for 4 more days on discharge. He should follow-up with his primary care provider should symptoms return. Carlos Alberto was discharged today. Recommend follow-up with primary care provider within 5 to 7 days of discharge, sooner if needed. Recommend recheck CBC, CMP, mag, phosphorus, ammonia, lipase, direct bilirubin at that time. Commend he follow-up with outpatient psychiatry and GI as directed. Recommend he work with AA and possibly outpatient rehab. He was instructed to return to the emergency room or contact his primary care provider should symptoms return or worsen. - Patient Instructions Diet: Heart Healthy Diet Diet, Other: Low fat, High fiber diet. Avoid spicy foods. Activity: As Tolerated, Rest and Relax Today Showering/Bathing: May Shower Notify Provider of: Fever, Increased Pain, Nausea and/or Vomiting Other/Special Instructions: Follow-up with primary care provider within 5-7 days of discharge, sooner if needed. Remain sober. Follow-up with GI as directed. Recommend follow-up CT scan within 6 months. Follow-up with outpatient psychiatry as scheduled. Recommend you attend AA meetings as suggested. Should symptoms return or worsen contact primary care provider or return to the Emergency Department. We discussed your smoking status. You were prescribed nicotine patches. You were also given a list of resources such as GINGER Quits for cessation aids. You can follow-up with your primary care provider for this as well. - Discharge Plan *PRESCRIPTION DRUG MONITORING PROGRAM REVIEWED*: No *COPY OF PRESCRIPTION DRUG MONITORING REPORT IN PATIENT ALE: No Prescriptions/Med Rec: FLUoxetine [PROzac] 20 mg PO DAILY #40 tab Folic Acid 1 mg PO DAILY #20 tablet Gabapentin [Neurontin] 200 mg PO BEDTIME #20 cap Lactulose [Cephulac] 20 gm PO DAILY #20 cup Nicotine [Habitrol] 21 mg TRDERM DAILY #14 patch Polymyxin B/Trimethoprim [PolyTrim Ophth Soln] 1 ml EYEBOTH Q4HWA 4 Days #1 bottle Propranolol [Inderal] 5 mg PO BID #40 tablet Thiamine [Vitamin B-1] 100 mg PO DAILY #20 tablet ursodioL [Larisa 250] 250 mg PO TIDMEALS #45 tablet Home Medications: Home Meds FLUoxetine [PROzac] 20 mg PO DAILY #40 tab 01/21/20 [Rx] Folic Acid 1 mg PO DAILY #20 tablet 01/21/20 [Rx] Gabapentin [Neurontin] 200 mg PO BEDTIME #20 cap 01/21/20 [Rx] Lactulose [Cephulac] 20 gm PO DAILY #20 cup 01/21/20 [Rx] Nicotine [Habitrol] 21 mg TRDERM DAILY #14 patch 01/21/20 [Rx] Polymyxin B/Trimethoprim [PolyTrim Ophth Soln] 1 ml EYEBOTH Q4HWA 4 Days #1 bottle 01/21/20 [Rx] Propranolol [Inderal] 5 mg PO BID #40 tablet 01/21/20 [Rx] Thiamine [Vitamin B-1] 100 mg PO DAILY #20 tablet 01/21/20 [Rx] ursodioL [Larisa 250] 250 mg PO TIDMEALS #45 tablet 01/21/20 [Rx] Oxygen Therapy Mode: Room Air Patient Handouts: Alcoholic Liver Disease, [id number], Alcoholic Hepatitis, Steps to Quit Smoking Referrals: Seymour Villanueva MD [Physician] - 02/05/20 11:00 am (This appointment is in [place] at the [facility]. Please come to the East side of the building to register. If you need to change the appointment time, please call [phone]. This appointment is [facility] Neo Keene MD [Primary Care Provider] - 02/05/20 11:00 am (Please register by 10:45am.) - Discharge Summary/Plan Comment DC Time >30 min.: Yes (45 mins ) - General Info Date of Service: 01/21/20 Admission Dx/Problem (Free Text: Alcoholic Pancreatitis Functional Status: Reports: Pain Controlled, Tolerating Diet, Ambulating, Urinating. Denies: New Symptoms - Review of Systems General: Reports: No Symptoms. Denies: Fever, Weakness, Fatigue, Malaise, Chills HEENT: Reports: No Symptoms. Denies: Headaches, Sore Throat Pulmonary: Reports: No Symptoms. Denies: Shortness of Breath, Pleuritic Chest Pain, Cough, Sputum, Wheezing Cardiovascular: Reports: No Symptoms. Denies: Chest Pain, Palpitations, Dyspnea on Exertion Gastrointestinal: Reports: Diarrhea (2/2 lactulose ). Denies: Abdominal Pain, Constipation, Nausea, Vomiting Genitourinary: Reports: No Symptoms. Denies: Pain Musculoskeletal: Reports: No Symptoms Skin: Reports: No Symptoms. Denies: Cyanosis Neurological: Reports: No Symptoms. Denies: Confusion, Difficulty Walking, Gait Disturbance Psychiatric: Reports: No Symptoms - Patient Data Vitals - Most Recent: Last Vital Signs Temp 98.1 F 01/20/20 20:50 Pulse 91 01/21/20 08:56 Resp 16 01/21/20 08:35 BP 111/79 01/21/20 08:56 Pulse Ox 100 01/21/20 08:35 Weight - Most Recent: 158 lb 1.6 oz I&O - Last 24 hours: Intake & Output 01/20/20 01/21/20 01/21/20 22:59 06:59 14:59 Intake Total 3052 1500 60 Output Total 550 Balance 3052 950 60 Lab Results - Last 24 hrs: Laboratory Results - last 24 hr 01/21/20 01/21/20 Range/Units 06:37 06:37 WBC 7.29 (4.23-9.07) K/mm3 RBC 2.90 L (4.63-6.08) M/mm3 Hgb 10.8 L (13.7-17.5) gm/dl Hct 33.1 L (40.1-51.0) % MCV 114.1 H (79.0-92.2) fl MCH 37.2 H (25.7-32.2) pg MCHC 32.6 (32.2-35.5) g/dl RDW Std Deviation 63.7 H (35.1-43.9) fL Plt Count 183 (163-337) K/mm3 MPV 11.7 (9.4-12.3) fl Neut % (Auto) 62.5 (34.0-67.9) % Lymph % (Auto) 15.6 L (21.8-53.1) % Navarro % (Auto) 19.1 H (5.3-12.2) % Eos % (Auto) 1.4 (0.8-7.0) Baso % (Auto) 0.4 (0.1-1.2) % Neut # (Auto) 4.56 (1.78-5.38) K/mm3 Lymph # (Auto) 1.14 L (1.32-3.57) K/mm3 Navarro # (Auto) 1.39 H (0.30-0.82) K/mm3 Eos # (Auto) 0.10 (0.04-0.54) K/mm3 Baso # (Auto) 0.03 (0.01-0.08) K/mm3 Manual Slide Review Abnormal smear Sodium 132 L (136-145) mEq/L Potassium 3.8 (3.5-5.1) mEq/L Chloride 100 (98-107) mEq/L Carbon Dioxide 24 (21-32) mEq/L Anion Gap 11.8 (5-15) BUN 5 L (7-18) mg/dL Creatinine 0.5 L (0.7-1.3) mg/dL Est Cr Clr Drug Dosing 203.19 mL/min Estimated GFR (MDRD) > 60 (>60) mL/min BUN/Creatinine Ratio 10.0 L (14-18) Glucose 87 (74-106) mg/dL Calcium 8.6 (8.5-10.1) mg/dL Total Bilirubin 10.8 H (0.2-1.0) mg/dL GGT 900 H (15-85) U/L AST 178 H (15-37) U/L ALT 92 H (16-63) U/L Alkaline Phosphatase 323 H (46-116) U/L Total Protein 5.9 L (6.4-8.2) g/dl Albumin 2.3 L (3.4-5.0) g/dl Globulin 3.6 gm/dL Albumin/Globulin Ratio 0.6 L (1-2) Med Orders - Current: Current Medications Fluoxetine HCl (Prozac) 20 mg PO DAILY DAWN Last Admin: 01/21/20 09:00 Dose: 20 mg Folic Acid (Folic Acid) 1 mg PO DAILY [facility] Last Admin: 01/21/20 08:56 Dose: 1 mg Gabapentin (Neurontin) 200 mg PO BEDTIME [facility] Last Admin: 01/20/20 20:53 Dose: 200 mg Potassium Chloride/Dextrose/Sod Cl (D5 1/2 Ns W/ 20 Meq/L Kcl) 1,000 mls @ 75 mls/hr IV ASDIRECTED [facility] Last Admin: 01/21/20 05:45 Dose: 75 mls/hr Lactulose (Cephulac) 20 gm PO DAILY [facility] Last Admin: 01/21/20 08:57 Dose: Not Given Lorazepam (Ativan) 1 - 3 mg IV ASDIRECTED [facility]; Protocol Last Admin: 01/15/20 03:15 Dose: 2 mg Lorazepam (Ativan) 1 - 3 mg PO ASDIRECTED [facility]; Protocol Last Admin: 01/15/20 01:07 Dose: 2 mg Nicotine (Habitrol) 21 mg TRDERM DAILY [facility] Last Admin: 01/21/20 08:59 Dose: 21 mg Ondansetron HCl (Zofran Odt) 4 mg PO Q6H PRN PRN Reason: nausea, able to take PO Ondansetron HCl (Zofran) 4 mg IV Q6H PRN PRN Reason: Nausea/Vomiting Polymyxin/Trimethoprim Sulfate (Polytrim Ophth Soln) 1 ml EYEBOTH Q4HWA [facility] Last Admin: 01/21/20 05:44 Dose: 1 drop Propranolol HCl (Inderal) 5 mg PO BID [facility] Last Admin: 01/21/20 08:56 Dose: 5 mg Sodium Phosphate (Neutra-Phos) 250 mg PO QID [facility] Last Admin: 01/21/20 08:55 Dose: 250 mg Thiamine HCl (Vitamin B-1) 100 mg PO DAILY [facility] Last Admin: 01/21/20 08:56 Dose: 100 mg Trazodone HCl (Trazodone) 100 mg PO BEDTIME [facility] Last Admin: 01/20/20 20:54 Dose: 100 mg Ursodiol (Larisa 250) 250 mg PO TIDMEALS [facility] Last Admin: 01/21/20 06:28 Dose: Not Given Discontinued Medications Acetaminophen (Tylenol) 650 mg PO NOW ONE Stop: 01/12/20 16:52 Last Admin: 01/12/20 17:54 Dose: Not Given Cyanocobalamin (Vitamin B12) 1,000 mcg IM ONETIME ONE Stop: 01/12/20 15:26 Last Admin: 01/12/20 15:52 Dose: 1,000 mcg Folic Acid (Folic Acid) 1 mg IV ONETIME ONE Stop: 01/13/20 15:26 Folic Acid (Folic Acid) 1 mg IV DAILY [facility] Last Admin: 01/14/20 09:44 Dose: 1 mg Haloperidol Lactate (Haldol) 5 mg IM ONETIME ONE Stop: 01/15/20 02:16 Last Admin: 01/15/20 02:23 Dose: 5 mg Haloperidol Lactate (Haldol) Confirm Administered Dose 5 mg .ROUTE .STK-MED ONE Stop: 01/15/20 02:19 Last Admin: 01/15/20 02:24 Dose: Not Given Lactated Ringer's (Ringers, Lactated) 1,000 mls @ 999 mls/hr IV .BOLUS ONE Stop: 01/12/20 16:25 Last Admin: 01/12/20 15:42 Dose: 999 mls/hr Lactated Ringer's (Ringers, Lactated) 1,000 mls @ 999 mls/hr IV .BOLUS ONE Stop: 01/12/20 16:27 Last Admin: 01/12/20 16:44 Dose: 999 mls/hr Potassium Chloride/Sodium Chloride (Normal Saline With 20 Meq Kcl) 1,000 mls @ 150 mls/hr IV ASDIRECTED DAWN Last Admin: 01/12/20 17:34 Dose: 150 mls/hr Sodium Chloride (Normal Saline) 1,000 mls @ 150 mls/hr IV ASDIRECTED DAWN Last Admin: 01/13/20 15:01 Dose: 150 mls/hr Lactated Ringer's (Ringers, Lactated) 1,000 mls @ 250 mls/hr IV ASDIRECTED DAWN Magnesium Sulfate 4 gm/ Premix 50 mls @ 12.5 mls/hr IV ONETIME ONE Stop: 01/12/20 22:52 Last Admin: 01/12/20 20:32 Dose: 12.5 mls/hr Potassium Chloride 10 meq/ (Premix) 100 mls @ 100 mls/hr IV Q1H DAWN Stop: 01/12/20 20:59 Last Admin: 01/12/20 22:04 Dose: 100 mls/hr Sodium Chloride (Normal Saline) 100 mls @ 60 mls/hr IV ASDIRECTED DAWN Stop: 01/13/20 16:00 Last Admin: 01/13/20 11:49 Dose: 60 mls/hr Potassium Chloride 10 meq/ (Premix) 100 mls @ 100 mls/hr IV Q1H DAWN Stop: 01/13/20 22:44 Last Admin: 01/13/20 23:39 Dose: 100 mls/hr Potassium Chloride/Sodium Chloride (Normal Saline With 40 Meq Kcl) 1,000 mls @ 150 mls/hr IV ASDIRECTED [facility] Last Admin: 01/15/20 01:08 Dose: 150 mls/hr Sodium Phosphate 60 mmole/ (Sodium Chloride) 270 mls @ 67 mls/hr IV ONETIME ONE Stop: 01/13/20 23:16 Last Admin: 01/13/20 20:09 Dose: 67 mls/hr Magnesium Sulfate 2 gm/ Premix 50 mls @ 25 mls/hr IV ONETIME ONE Stop: 01/15/20 10:29 Last Admin: 01/15/20 09:01 Dose: 25 mls/hr Sodium Chloride (Normal Saline) 1,000 mls @ 150 mls/hr IV ASDIRECTED [facility] Stop: 01/15/20 15:00 Last Admin: 01/15/20 08:30 Dose: 150 mls/hr Dextrose/Sodium Chloride (Dextrose 5%-Normal Saline) 1,000 mls @ 125 mls/hr IV ASDIRECTED [facility] Last Admin: 01/16/20 04:52 Dose: 125 mls/hr Sodium Phosphate 30 mmole/ (Sodium Chloride) 260 mls @ 130 mls/hr IV Q2H DAWN Stop: 01/15/20 14:59 Last Admin: 01/15/20 13:04 Dose: 130 mls/hr Magnesium Sulfate 2 gm/ Premix 50 mls @ 25 mls/hr IV Q1H DAWN Stop: 01/15/20 22:29 Last Admin: 01/15/20 22:03 Dose: 25 mls/hr Potassium Phosphate 15 mmole/ (Sodium Chloride) 255 mls @ 85 mls/hr IV ASDIRECTED [facility] Stop: 01/15/20 23:29 Sodium Phosphate 30 mmole/ (Sodium Chloride) 260 mls @ 86.667 mls/hr IV ONETIME ONE Stop: 01/16/20 00:29 Last Admin: 01/15/20 21:35 Dose: 86.667 mls/hr Potassium Phosphate 30 mmole/ (Sodium Chloride) 510 mls @ 102 mls/hr IV ONETIME ONE Stop: 01/16/20 16:29 Last Admin: 01/16/20 11:06 Dose: 102 mls/hr Potassium Phosphate 30 mmole/ (Sodium Chloride) 510 mls @ 102 mls/hr IV ONETIME ONE Stop: 01/17/20 13:59 Last Admin: 01/17/20 09:00 Dose: 102 mls/hr Magnesium Sulfate 2 gm/ Premix 50 mls @ 25 mls/hr IV ONETIME ONE Stop: 01/18/20 19:50 Last Admin: 01/18/20 18:14 Dose: 25 mls/hr Albumin Human (Flexbumin 25%) 12.5 gm in 50 mls @ 100 mls/hr IV ONETIME ONE Stop: 01/19/20 11:00 Last Admin: 01/19/20 11:32 Dose: 100 mls/hr Albumin Human (Flexbumin 25%) 12.5 gm in 50 mls @ 100 mls/hr IV ONETIME ONE Stop: 01/19/20 11:29 Last Admin: 01/19/20 12:12 Dose: 100 mls/hr Potassium Phosphate 30 mmole/ (Sodium Chloride) 510 mls @ 102 mls/hr IV ASDIRECTED DAWN Stop: 01/20/20 13:14 Last Admin: 01/20/20 11:06 Dose: 102 mls/hr Iopamidol (Isovue-370 (76%)) 100 ml IVPUSH ONETIME ONE Stop: 01/13/20 11:45 Last Admin: 01/13/20 11:49 Dose: 100 ml Lactulose (Cephulac) 20 gm PO ONETIME ONE Stop: 01/19/20 10:16 Last Admin: 01/19/20 11:32 Dose: 20 gm Lactulose (Cephulac) 20 gm PO BID DAWN Last Admin: 01/20/20 09:30 Dose: Not Given Lorazepam (Ativan) 0 mg PO ASDIRECTED DAWN; Protocol Lorazepam (Ativan) 0 mg IV ASDIRECTED DAWN; Protocol Lorazepam (Ativan) 1 mg PO ONETIME ONE Stop: 01/13/20 14:30 Last Admin: 01/13/20 15:00 Dose: 1 mg Nicotine (Habitrol) 14 mg TRDERM DAILY [facility] Last Admin: 01/19/20 09:44 Dose: 14 mg Ursodiol 250 Mg Tab 0 each PO TIDMEALS [facility] Last Admin: 01/18/20 06:43 Dose: 1 each Ondansetron HCl (Zofran) 4 mg IVPUSH ONETIME ONE Stop: 01/12/20 15:26 Last Admin: 01/12/20 15:42 Dose: 4 mg Potassium Chloride (Klor-Con M20) 20 meq PO ONETIME ONE Stop: 01/15/20 21:08 Last Admin: 01/15/20 21:34 Dose: 20 meq Potassium Chloride (Klor-Con M20) 40 meq PO ONETIME ONE Stop: 01/19/20 10:36 Last Admin: 01/19/20 11:33 Dose: 40 meq Quetiapine Fumarate (Seroquel) 25 mg PO BEDTIME [facility] Last Admin: 01/14/20 21:29 Dose: 25 mg Ropinirole HCl (Requip) 1 mg PO BEDTIME [facility] Last Admin: 01/19/20 21:35 Dose: 1 mg Sodium Chloride (Saline Flush) 10 ml FLUSH ONETIME ONE Stop: 01/13/20 11:45 Last Admin: 01/13/20 11:49 Dose: 10 ml Topiramate (Topamax) 25 mg PO BID [facility] Last Admin: 01/14/20 21:29 Dose: 25 mg Ursodiol (Larisa 250) 500 mg .ROUTE .STK-MED ONE Stop: 01/17/20 17:01 - Exam Quality Assessment: Reports: DVT Prophylaxis General: Reports: Alert, Oriented, Cooperative, No Acute Distress, Other ( Jaundiced but improving ) HEENT: Reports: Pupils Equal, Pupils Reactive, Scleral Icterus Neck: Reports: Supple, Trachea Midline Lungs: Reports: Clear to Auscultation, Normal Respiratory Effort Cardiovascular: Reports: Regular Rate, Regular Rhythm GI/Abdominal Exam: Normal Bowel Sounds, Soft, Non-Tender, No Distention (Male) Exam: Deferred Rectal (Males) Exam: Deferred Back Exam: Reports: Normal Inspection, Full Range of Motion Extremities: Normal Inspection, Normal Range of Motion, Non-Tender, No Pedal Edema, Normal Capillary Refill Skin: Reports: Warm, Dry, Intact Neurological: Reports: No New Focal Deficit Psy/Mental Status: Reports: Alert
--- NOTE | 2020-01-22 08:13 | DISCH ---
ADMISSION DATE: 01/15/2020 DISCHARGE DATE: 01/21/2020 ADDENDUM: FINAL DIAGNOSIS: 1. Severe acute on top of chronic cholestatic alcoholic hepatitis (improving). 2. Alcoholic encephalopathy (improved). 3. Alcohol abuse. 4. Smoking dependency. 5. Electrolyte imbalance on admission (improved after replacement). 6. Thrombocytopenia secondary to chronic alcoholic hepatitis (stable). 7. Reported history of degenerative joint disease, depression, acute alcohol- induced pancreatitis (improved). The patient was seen, examined, and discussed by me with Femi Wbeer PA-C. HOSPITAL COURSE: The patient is a 39-year-old white male who was admitted to the hospital on 01/12/2020 from emergency room where the patient presented with suppressed mental status, nausea, vomiting, and abdominal pain. He was found to be in acute recurrent pancreatitis, extremely high bilirubinemia secondary to acute on top of chronic cholestatic alcoholic hepatitis and also with alcohol intoxication. The patient was on alcohol withdrawal program. He received modest IV fluids. Gradually, the patient regained his mental status, but cholestatic hepatitis and acute on top of chronic pancreatitis were very resilient to treatment. Eventually for 3 days, the patient established trend for improvement. With added Ursodiol 250 mg p.o. 3 times a day with meals, bilirubin started going down. The patient feels well, eats 100% of his meals, and he will be discharged home in satisfactory condition. Upon discharge home, the patient is recommended for mental health counseling and rehab as appropriate. The patient is vocalizing understanding about and really wants to participate in these programs. Other than this upon discharge in 2 weeks, we will recommend to follow up with his GI/liver specialist in concern of severe cholestatic hepatitis that the patient has and hopefully establish regular care. Throughout hospital stay and on the day of discharge, the patient was consulted about need to stop abusing alcohol and overall drinking immediately. He vocalized understanding and hopefully will stop drinking absolutely upon discharge. At least, the patient reported that he will definitely try to do so. Total time spent in alcohol cessation counseling was longer than 15 minutes. Throughout hospital stay and on the day of discharge, the patient was consulted about smoking cessation, again vocalized understanding and stated that nicotine patch works well for him, and he is not planning to restart smoking. Total time spent in smoking cessation counseling was longer than 3 minutes. For details of the patient's history, clinical presentation, course of hospital stay, test results, physical exam on discharge, discharge medications and recommendations, please see discharge summary and discharge instructions prepared by Femi Weber PA-C. [facility] /[id number]
== END 2020-01-21 11:53 | disposition home or self-care (01) | DRG 56 ==
LOC: JD.ED 14:46 → UNDOADMIN 18:27 → JD.MS 18:27 → JD.ICU 01-15 02:22 → JD.MS 01-15 02:22 → JD.ICU 01-16 15:16
PROVIDERS: ADMIT Internal Medicine; ATTEND Internal Medicine
DX: G31.2 Degeneration of nervous system due to alcohol (principal); K85.20 Alcohol induced acute pancreatitis without necrosis or infection; E87.1 Hypo-osmolality and hyponatremia; F31.60 Bipolar disorder, current episode mixed, unspecified; K70.10 Alcoholic hepatitis without ascites; F41.9 Anxiety disorder, unspecified; M54.5 Low back pain; R16.0 Hepatomegaly, not elsewhere classified; F10.129 Alcohol abuse with intoxication, unspecified; D53.9 Nutritional anemia, unspecified; H10.9 Unspecified conjunctivitis; K75.89 Other specified inflammatory liver diseases; E87.6 Hypokalemia; E88.09 Other disorders of plasma-protein metabolism, not elsewhere classified; E83.42 Hypomagnesemia; F17.210 Nicotine dependence, cigarettes, uncomplicated; D69.6 Thrombocytopenia, unspecified; Y90.0 Blood alcohol level of less than 20 mg/100 ml; M51.36 Other intervertebral disc degeneration, lumbar region; M47.26 Other spondylosis with radiculopathy, lumbar region; Z88.1 Allergy status to other antibiotic agents; Z71.6 Tobacco abuse counseling
CPT/HCPCS: 36415; 74170; 74170-26; 74181; 74181-26; 76700; 76700-26; 80053; 80074; 80306; 80307; 81001; 82140; 82150; 82248; 82378; 82962; 82977; 83605; 83690; 83735; 84100; 84132; 84484; 85007; 85025; 85027; 85610; 85730; 86300; 86301; 93005; 96361; 96372; 96374; 96375; 97110-GP; 97116-GP; 97162-GP; 97165-GO; 97530-GP; 97535-GO; 99285; 99285-25; A9270-GY; J1630; J2060; J2405; J3420; J3475; J3480; J3490; J7030; J7040; J7042; J7050; J7120; P9047; Q9967

== ENCOUNTER 2021-07-26 15:12 | Emergency (ER) | payer MEDICAID ==
[2021-07-26 17:29] VITALS: BP 149/100; PULSE 96
[2021-07-26] MEDS ORDERED: Ibuprofen 600 MG Tab PO ONE (18:47)
[2021-07-26] MEDS ORDERED: Orphenadrine 100 MG Tab.ER PO STA (18:47)
[2021-07-26] MEDS ORDERED: HYDROmorphone 1 MG/ML Syringe IM ONE (18:48)
--- NOTE | 2021-07-26 18:53 | EDM.PDOC ---
ED HPI GENERAL MEDICAL PROBLEM - General Chief Complaint: Back Pain or Injury Stated Complaint: BACK INJURY Time Seen by Provider: 07/26/21 18:20 Source of Information: Reports: Patient History Limitations: Reports: No Limitations - History of Present Illness INITIAL COMMENTS - FREE TEXT/NARRATIVE: Mr. Crystal is a very pleasant 41-year-old gentleman who now presents the ED stat ing that he developed bilateral lower back pain around 1230 this afternoon, when he squatted, lifted, and twisted a heavy item at the same time while working at home. He states that the pain is localized to his lower back, and does not radiate down either lower extremity. He denies incontinence of bowel or bladder. He states that he has a history of degenerative disc disease, and that he has had similar pain in the past, typically treated with oxycodone or [place]. He states that he is already on gabapentin. The patient states that he applied a heating pad to his lower back, but he did not take any analgesics prior to coming to the ED. Here in the ED, the patient's initial BP is found to be mildly elevated at 149/100, otherwise, he is hemodynamically stable, afebrile, saturating 98% on room air. He appears to be comfortable while lying semirecumbent on the gurney. Prior to this afternoon, the patient denies having a recent fever, chills, sore throat, ear pain, nasal or sinus congestion, cough, dyspnea, chest pain, palpitations, nausea, vomiting, constipation, diarrhea, abdominal pain, urinary symptoms, recent weight gain or weight loss, recent bloody bowel movements or black bowel movements, recent joint aches, headaches, or rashes. The patient's PCP is Dr. Neo Keene. His psychology midlevel is Shae Farias NP. He has not received a COVID vaccination, nor an influenza vaccination this season. Lower Posterior Back Pain Score (Numeric/FACES): 9 - Related Data Allergies Allergy/AdvReac Type Severity Reaction Status Date / Time cephalexin [From Keflex] Allergy Anaphylactic Verified 07/26/21 17:29 Shock Home Meds: Home Meds FLUoxetine [PROzac] 20 mg PO DAILY #40 tab 01/21/20 [Rx] Gabapentin [Neurontin] 200 mg PO TID 07/26/21 [History] Mirtazapine 15 mg PO DAILY 07/26/21 [History] Orphenadrine [Norflex] 1 tab PO Q12H PRN #14 tab.er 07/26/21 [Rx] buPROPion HCL [Wellbutrin Xl] 300 mg PO DAILY 07/26/21 [History] Past Medical History Cardiovascular History: Reports: Hypertension (untreated) Gastrointestinal History: Reports: Hepatitis (alcoholic) Musculoskeletal History: Reports: Back Pain, Chronic (DDD), Other (See Below) (Extensive facial trauma as a child) Psychiatric History: Reports: Addiction (alcohol) - Infectious Disease History Infectious Disease History: Reports: Chicken Pox - Past Surgical History HEENT Surgical History: Reports: Oral Surgery, Tonsillectomy, Other (See Below) (17 facial reconstruction surgeries as a child) Social & Family History - Tobacco Use Tobacco Use Status *Q: Current Every Day Tobacco User Years of Tobacco use: 24 Packs/Tins Daily: 0.5 Packs/Tins Daily Comment: Down from 2 ppd Tobacco Use Comment: Started smoking 1996 - Caffeine Use Caffeine Use: Reports: Coffee Caffeine Use Comment: one pot daily - Alcohol Use Alcohol Use History: Yes Date/Time of Last Drink Comment: Alcoholic - sober since Dec 2019 - Recreational Drug Use Recreational Drug Use: Yes Drug Use in Last 12 Months: Yes Recreational Drug Type: Reports: Marijuana/Hashish (smokes on occasion - last early Jun 2021) - Living Situation & Occupation Living situation: Reports: (Working [place] with Spouse, with Family (4 kids) Occupation: Employed (floor hand) ED ROS GENERAL - Review of Systems Review Of Systems: Comprehensive ROS is negative, except as noted in HPI. ED EXAM,LOWER BACK PAIN/INJURY - Physical Exam Exam: See Below Exam Limited By: No Limitations General Appearance: Alert, WD/WN, No Apparent Distress (while lying on the gurney) Eye Exam: Bilateral Eye: EOMI, Normal Inspection Ears: Normal External Exam, Hearing Grossly Normal Nose: Normal Inspection Throat/Mouth: Normal Inspection, Normal Lips, Normal Voice, No Airway Compromise Head: Atraumatic, Normocephalic Neck: Normal Inspection, Full Range of Motion Respiratory/Chest: No Respiratory Distress, Lungs Clear, Normal Breath Sounds, No Accessory Muscle Use Cardiovascular: Normal Peripheral Pulses, Regular Rate, Rhythm, No Edema, No Gallop, No JVD, No Murmur, No Rub GI/Abdominal: Normal Bowel Sounds, Soft, Non-Tender, No Organomegaly, No Distention, No Abnormal Bruit, No Mass Back Exam: Muscle Spasm (bilateral lumbar paraspinous) Extremities: Normal Inspection, Normal Range of Motion, No Pedal Edema, Normal Capillary Refill Neurological: Alert, Normal Dorsiflexion, Normal Plantar Flexion, No Motor/Sensory Deficits, Oriented x 3 Psychiatric: Normal Affect Skin Exam: Warm, Dry, Intact, Normal Color, No Rash Course - Vital Signs Last Recorded V/S: Last Vital Signs Temp 36.0 C L 07/26/21 17:23 Pulse 96 07/26/21 17:23 Resp 18 07/26/21 17:23 BP 149/100 H 07/26/21 17: Pulse Ox 98 07/26/21 17:23 - Orders/Labs/Meds Meds: Medications Discontinued Medications Generic Name Dose Route Start Last Admin Trade Name Jesseq PRN Reason Stop Dose Admin Hydromorphone HCl 1 mg 07/26/21 18:48 07/26/21 19:02 Hydromorphone 1 Mg/Ml Syringe IM 07/26/21 18:49 1 mg ONETIME ONE Administration Ibuprofen 600 mg 07/26/21 18:47 07/26/21 19:02 Ibuprofen 600 Mg Tab PO 07/26/21 18:48 600 mg ONETIME ONE Administration Orphenadrine Citrate 100 mg 07/26/21 18:47 07/26/21 19:02 Orphenadrine 100 Mg Tab.Er PO 07/26/21 18:48 100 mg ONETIME STA Administration - Re-Assessments/Exams Free Text/Narrative Re-Assessment/Exam: 07/26/21 18:48 The patient appears to have lower back pain due to a muscle spasm. His symptoms are not consistent with a herniated intervertebral disc, as there is no radiculopathy. He will be started on Norflex and ibuprofen, and given an IM injection of Dilaudid here in the ED. He will be discharged home with an [facility] prescription for [place] and I will submit a prescription to the pharmacy of his choice for Norflex. He can continue to take OTC ibuprofen. I recommended that he stay active. If his symptoms persist, he should follow-up with Dr. Keene for further evaluation. Departure - Departure Time of Disposition: 18:49 Disposition: Home, Self-Care 01 Condition: Good Clinical Impression: Spasm of back muscles, Low back pain - Discharge Information *PRESCRIPTION DRUG MONITORING PROGRAM REVIEWED*: Not Applicable *COPY OF PRESCRIPTION DRUG MONITORING REPORT IN PATIENT ALE: Not Applicable Prescriptions: Orphenadrine [Norflex] 1 tab PO Q12H PRN #14 tab.er PRN Reason: Muscle Spasm - Painful Instructions: Muscle Cramps and Spasms, [id number] Referrals: Neo Keene MD [Primary Care Provider] - Shae Farias NP [Ordering Only Provider] - Forms: ED Department Discharge Additional Instructions: You were seen in the emergency room after straining your lower back while working at home this afternoon. You were treated with an injection of the opioid Dilaudid, started on the muscle relaxant Norflex, and given ibuprofen in the ER. We recommend that you take [id number] ibuprofen, 3 tablets (600 mg) up to every 8 hours, with food, as needed for discomfort. A prescription for the opioid pain reliever [place] has been provided to you via [id number]. You may take 1 to 2 tablets of [place] up to every 6 hours, as needed for pain not relieved by ibuprofen. If you take [place], do not drive or operate heavy machinery for 12 hours afterwards. [place] may cause constipation, so consider taking a stool softener. A prescription for Norflex has been sent to the [facility], located in the [employer] [facility]. Take 1 tablet of Norflex every 12 hours, starting tomorrow morning, 07/27/2021. It is important that you stay active. Swimming is best, but walking is good, as well. If your symptoms persist, please follow-up with your PCP, Dr. Neo Keene, for further evaluation. If any other problems, including worsening of your symptoms, please do not hesitate to return to the ER. Sepsis Event Note (ED) - Evaluation Sepsis Screening Result: No Definite Risk - Focused Exam Vital Signs: Vital Signs Temp Pulse Resp BP Pulse Ox 07/26/21 17:23 36.0 C L 96 18 149/100 H 98
== END 2021-07-26 19:08 | disposition home or self-care (01) ==
LOC: JD.ED 15:12
DX: M62.830 Muscle spasm of back (principal); M54.50 Low back pain, unspecified; I10 Essential (primary) hypertension; Z72.0 Tobacco use; Z79.899 Other long term (current) drug therapy; Z88.1 Allergy status to other antibiotic agents
CPT/HCPCS: 96372; 99283; A9270; J1170